=== PATIENT | male | born 1955 | race Caucasian/White ===

== ENCOUNTER 2017-12-03 15:11 | Inpatient (IN) | payer OTHER ==
[2017-12-03 18:00] LABS: ADD MAN DIFF? NO
[2017-12-03 18:03] LABS: BASOPHILS % 0.3 % (0.0-2.0); EOSINOPHILS # 0.4 10^3/ul (0.0-0.5); EOSINOPHILS % 3.6 % (0.0-7.0); HEMATOCRIT 38.9 % (42.0-52.0); HEMOGLOBIN 13.2 g/dl (14.0-18.0); LYMPHOCYTES # 1.1 10^3/ul (0.8-2.9); LYMPHOCYTES % 9.6 % (15.0-51.0); MEAN CORPUSCULAR HEMOGLOBIN 28.9 pg (29.0-33.0); MEAN CORPUSCULAR HGB CONC 33.9 g/dl (32.0-37.0); MEAN CORPUSCULAR VOLUME 85.3 fl (82.0-101.0); MEAN PLATELET VOLUME 10.9 fl (7.4-10.4); MONOCYTE # 0.8 10^3/ul (0.3-0.9); MONOCYTES % 6.8 % (0.0-11.0); NEUTROPHIL # 9.4 10^3/ul (1.6-7.5); NEUTROPHILS % 79.4 % (39.0-77.0); PLATELET COUNT 274 10^3/UL (140-415); RED BLOOD COUNT 4.56 10^6/ul (4.70-6.10); RED CELL DISTRIBUTION WIDTH 13.2 % (11.5-14.5)
[2017-12-03 18:03] LABS: WHITE BLOOD COUNT 11.8 10^3/ul (4.8-10.8)
[2017-12-03 18:23] LABS: ANION GAP 12 (8-16); BLOOD UREA NITROGEN 35 mg/dl (7-20); CALCIUM 8.4 mg/dl (8.4-10.2); CARBON DIOXIDE 30 mmol/L (21-31); CHLORIDE 97 mmol/L (97-110); CREATININE 1.73 mg/dl (0.61-1.24); POTASSIUM 3.7 mmol/L (3.5-5.1); SODIUM 135 mmol/L (135-144)
[2017-12-03 18:34] LABS: B-TYPE NATRIURETIC PEPTIDE 7660 PG/ML (0-125); GLUCOSE 403 mg/dl (70-220); INR 1.34; PROTIME 16.8 Sec (11.9-14.9); PT RATIO 1.3; TROPONIN-I 0.045 ng/ml (0.000-0.120)
[2017-12-03 18:35] LABS: PARTIAL THROMBOPLASTIN TIME 47.3 Sec (25.0-35.0)
[2017-12-03 18:37] LABS: D-DIMER 935.55 ng/ml (<460)
[2017-12-03] MEDS: FUROSEMIDE 40 MG INJ IV (19:37)
[2017-12-04] MEDS ORDERED: NITROGLYCERIN (SL) 0.4 MG TAB SL (06:30)
[2017-12-04] MEDS ORDERED: ALBUTEROL/IPRATROPIUM (NEB) 3 ML AMP HHN (06:30)
[2017-12-04] MEDS ORDERED: morphine 2 MG INJ IV (06:30)
[2017-12-04] MEDS ORDERED: ACETAMINOPHEN 325 MG TAB PO (06:30)
[2017-12-04] MEDS ORDERED: ONDANSETRON 4 MG INJ IV (06:30)
[2017-12-04] MEDS ORDERED: NACL 0.9% 3 ML SYG IV (06:30)
[2017-12-04] MEDS: FUROSEMIDE 40 MG TAB PO (07:03)
[2017-12-04] MEDS ORDERED: ASPIRIN 81 MG TAB PO (09:00)
[2017-12-04] MEDS ORDERED: BUPROPION (XL) 150 MG TAB PO (09:00)
[2017-12-04] MEDS ORDERED: FOLIC ACID 1 MG TAB PO (09:00)
[2017-12-04] MEDS: HEPARIN 5,000 UNIT/0.5 ML VIAL SC (09:00)
[2017-12-04] MEDS ORDERED: LOSARTAN 25 MG TAB PO (09:00)
== END 2017-12-04 09:45 | disposition left against medical advice (07) | DRG 291 ==
LOC: E/R 15:11 → TEL 19:07
DX: I13.0 Hypertensive heart and chronic kidney disease with heart failure and stage 1 through stage 4 chronic kidney disease, or unspecified chronic kidney disease (principal); I50.23 Acute on chronic systolic (congestive) heart failure; E11.22 Type 2 diabetes mellitus with diabetic chronic kidney disease; N18.9 Chronic kidney disease, unspecified; L97.529 Non-pressure chronic ulcer of other part of left foot with unspecified severity; E66.01 Morbid (severe) obesity due to excess calories; Z68.39 Body mass index [BMI] 39.0-39.9, adult; E11.40 Type 2 diabetes mellitus with diabetic neuropathy, unspecified; E11.65 Type 2 diabetes mellitus with hyperglycemia
CPT/HCPCS: 36415; 71045; 80048; 83880; 84484; 85025; 85378; 85610; 85730; 96374; 99285-25

== ENCOUNTER 2017-12-10 16:02 | Outpatient (CLI) | payer OTHER | END 2017-12-10 16:04 | disposition home or self-care (01) | LOC: DCC 16:02 | DX: I50.9 Heart failure, unspecified (principal); L97.529 Non-pressure chronic ulcer of other part of left foot with unspecified severity; N28.9 Disorder of kidney and ureter, unspecified; E66.9 Obesity, unspecified; G62.9 Polyneuropathy, unspecified; I10 Essential (primary) hypertension; I25.10 Atherosclerotic heart disease of native coronary artery without angina pectoris; I42.9 Cardiomyopathy, unspecified; E11.40 Type 2 diabetes mellitus with diabetic neuropathy, unspecified | CPT/HCPCS: G0463 ==

== ENCOUNTER 2017-12-24 14:16 | Outpatient (CLI) | payer OTHER | END 2017-12-24 16:35 | disposition home or self-care (01) | LOC: DCC 14:16 | DX: E11.621 Type 2 diabetes mellitus with foot ulcer (principal); N28.9 Disorder of kidney and ureter, unspecified; G62.9 Polyneuropathy, unspecified; I50.9 Heart failure, unspecified | CPT/HCPCS: G0463 ==

== ENCOUNTER 2018-09-27 17:07 | Inpatient (IN) | payer OTHER ==
[2018-09-27 18:33] LABS: ADD MAN DIFF? NO
[2018-09-27 18:40] LABS: WHITE BLOOD COUNT 10.1 10^3/ul (4.8-10.8)
[2018-09-27 18:40] LABS: BASOPHIL # 0.1 10^3/ul (0.0-0.1); BASOPHILS % 0.5 % (0.0-2.0); EOSINOPHILS # 0.2 10^3/ul (0.0-0.5); EOSINOPHILS % 1.9 % (0.0-7.0); HEMATOCRIT 40.8 % (42.0-52.0); HEMOGLOBIN 13.2 g/dl (14.0-18.0); LYMPHOCYTES # 0.9 10^3/ul (0.8-2.9); LYMPHOCYTES % 9.2 % (15.0-51.0); MEAN CORPUSCULAR HEMOGLOBIN 28.9 pg (29.0-33.0); MEAN CORPUSCULAR HGB CONC 32.4 g/dl (32.0-37.0); MEAN CORPUSCULAR VOLUME 89.5 fl (82.0-101.0); MEAN PLATELET VOLUME 11.1 fl (7.4-10.4); MONOCYTE # 0.7 10^3/ul (0.3-0.9); MONOCYTES % 6.5 % (0.0-11.0); NEUTROPHIL # 8.2 10^3/ul (1.6-7.5); NEUTROPHILS % 81.4 % (39.0-77.0); PLATELET COUNT 233 10^3/UL (140-415); RED BLOOD COUNT 4.56 10^6/ul (4.70-6.10); RED CELL DISTRIBUTION WIDTH 15.4 % (11.5-14.5)
[2018-09-27] MEDS: SODIUM CHLORIDE 0.9% 1L BAG IV* (18:54)
[2018-09-27] MEDS: PIPER-TAZO 3.375 GM IV (PMX) 100 ML IVPB (18:55)
[2018-09-27] MEDS: VANCOMYCIN 1 GM (PMX) 250 ML IVPB (18:56)
[2018-09-27 19:00] LABS: INR 1.17; PT RATIO 1.2
[2018-09-27] MEDS ORDERED: NACL 0.9% 3 ML SYG IV (19:00)
[2018-09-27] MEDS ORDERED: VANCOMYCIN IV PER PHARMACY XX (19:00)
[2018-09-27] MEDS ORDERED: ACETAMINOPHEN 325 MG TAB PO (19:00)
[2018-09-27] MEDS ORDERED: HYDROCODONE/APAP (5/325) TAB PO (19:00)
[2018-09-27] MEDS ORDERED: morphine 2 MG INJ IV (19:00)
[2018-09-27] MEDS ORDERED: ONDANSETRON 4 MG INJ IV (19:00)
[2018-09-27 19:01] LABS: PARTIAL THROMBOPLASTIN TIME 32.6 Sec (23.0-35.0)
[2018-09-27 19:08] LABS: ALANINE AMINOTRANSFERASE 20 IU/L (13-69); ALBUMIN 3.4 g/dl (3.3-4.9); ALBUMIN/GLOBULIN RATIO 0.75; ALKALINE PHOSPHATASE 436 IU/L (42-121); ANION GAP 11 (5-13); ASPARTATE AMINO TRANSFERASE 41 IU/L (15-46); BILIRUBIN,INDIRECT 0.2 mg/dl (0-1.1); BILIRUBIN,TOTAL 0.2 mg/dl (0.2-1.3); BLOOD UREA NITROGEN 46 mg/dl (7-20); CALCIUM 8.9 mg/dl (8.4-10.2); CARBON DIOXIDE 27 mmol/L (21-31); CHLORIDE 97 mmol/L (97-110); CREATININE 1.83 mg/dl (0.61-1.24); Estimated GFR 38 mL/min (>60); GLUCOSE 373 mg/dl (70-220); SODIUM 135 mmol/L (135-144); TOTAL PROTEIN 7.9 g/dl (6.1-8.1)
[2018-09-27 19:09] LABS: LACTIC ACID 1.5 mmol/L (0.5-2.0)
[2018-09-27 19:44] LABS: C-REACTIVE PROTEIN 5.8 mg/dl (0.0-0.9)
[2018-09-27 19:46] LABS: TROPONIN-I 0.074 ng/ml (0.000-0.120)
[2018-09-27 19:52] LABS: ERYTHROCYTE SEDIMENTATION RATE 61 mm/Hr (0-20)
[2018-09-27 19:56] LABS: ADD UMIC YES; UR ASCORBIC ACID 40 mg/dL (NEGATIVE); UR BILIRUBIN (Dip) NEGATIVE (NEGATIVE); UR BLOOD (Dip) NEGATIVE (NEGATIVE); UR CLARITY CLEAR (CLEAR); UR COLOR YELLOW (YELLOW); UR GLUCOSE (Dip) 3+ mg/dL (NEGATIVE); UR KETONES (Dip) NEGATIVE (NEGATIVE); UR LEUKOCYTE ESTERASE (Dip) NEGATIVE Leu/ul (NEGATIVE); UR NITRITE (Dip) NEGATIVE (NEGATIVE); UR RBC 2 /HPF (0-5); UR SPECIFIC GRAVITY (Dip) 1.013 (1.003-1.030); UR TOTAL PROTEIN (Dip) 3+ mg/dl (NEGATIVE); UR UROBILINOGEN (Dip) 1+ mg/dL (NEGATIVE); UR WBC 0 /HPF (0-5)
[2018-09-27] MEDS: VANCOMYCIN HCL 1.5 GM in SOD CHLORIDE 0.9% 250 ML IVPB (22:33)
[2018-09-28] MEDS ORDERED: INSULIN GLARGINE [LANtus] 3 ML PEN SC
[2018-09-28] MEDS: FUROSEMIDE 20 MG TAB PO
[2018-09-28] MEDS: ACCU-CHEK XX (02:00)
[2018-09-28] MEDS: INSULIN GLARGINE [LANTus] (100 UNITS/ML) SYG SC ×3 (02:20→20:51)
[2018-09-28] MEDS: FUROSEMIDE 40 MG INJ IV ×2 (02:26→20:52)
[2018-09-28] MEDS: INSULIN ASPART [NOVOLOG] 3 ML PEN SC ×9 (02:28→20:51)
[2018-09-28] MEDS: PIPER-TAZO 3.375 GM IV (PMX) 100 ML IVPB ×4 (03:29→20:54)
[2018-09-28 05:14] LABS: ADD MAN DIFF? NO
[2018-09-28 05:17] LABS: WHITE BLOOD COUNT 9.8 10^3/ul (4.8-10.8)
[2018-09-28 05:17] LABS: BASOPHIL # 0.1 10^3/ul (0.0-0.1); BASOPHILS % 0.7 % (0.0-2.0); EOSINOPHILS # 0.2 10^3/ul (0.0-0.5); EOSINOPHILS % 2.1 % (0.0-7.0); HEMATOCRIT 41.1 % (42.0-52.0); HEMOGLOBIN 13.2 g/dl (14.0-18.0); LYMPHOCYTES # 0.9 10^3/ul (0.8-2.9); MEAN CORPUSCULAR HEMOGLOBIN 28.8 pg (29.0-33.0); MEAN CORPUSCULAR HGB CONC 32.1 g/dl (32.0-37.0); MEAN CORPUSCULAR VOLUME 89.7 fl (82.0-101.0); MEAN PLATELET VOLUME 11.1 fl (7.4-10.4); MONOCYTE # 0.7 10^3/ul (0.3-0.9); MONOCYTES % 6.7 % (0.0-11.0); NEUTROPHIL # 7.9 10^3/ul (1.6-7.5); NEUTROPHILS % 80.9 % (39.0-77.0); PLATELET COUNT 219 10^3/UL (140-415); RED BLOOD COUNT 4.58 10^6/ul (4.70-6.10); RED CELL DISTRIBUTION WIDTH 15.3 % (11.5-14.5)
[2018-09-28 05:34] LABS: HEMOGLOBIN A1C 10.5 % (0-5.9)
[2018-09-28 06:09] LABS: ALANINE AMINOTRANSFERASE 19 IU/L (13-69); ALKALINE PHOSPHATASE 390 IU/L (42-121); ANION GAP 10 (5-13); ASPARTATE AMINO TRANSFERASE 35 IU/L (15-46); BILIRUBIN,INDIRECT 0.3 mg/dl (0-1.1); BILIRUBIN,TOTAL 0.3 mg/dl (0.2-1.3); BLOOD UREA NITROGEN 41 mg/dl (7-20); CALCIUM 8.8 mg/dl (8.4-10.2); CARBON DIOXIDE 27 mmol/L (21-31); CHLORIDE 100 mmol/L (97-110); CREATININE 1.69 mg/dl (0.61-1.24); Estimated GFR 41 mL/min (>60); GLUCOSE 302 mg/dl (70-220); POTASSIUM 3.8 mmol/L (3.5-5.1); SODIUM 137 mmol/L (135-144)
[2018-09-28 06:10] LABS: ALBUMIN 3.4 g/dl (3.3-4.9); ALBUMIN/GLOBULIN RATIO 0.73; CHOL/HDL RATIO 4.6 RATIO; CHOLESTEROL 120 mg/dl (100-200); HDL CHOLESTEROL 26 mg/dl (30-78); LDL CHOLESTEROL,CALCULATED 71 mg/dl; TRIGLYCERIDES 114 mg/dl (0-149)
[2018-09-28] MEDS: METOPROLOL (XL) 50 MG TAB PO ×2 (08:19→20:41)
[2018-09-28] MEDS: ASPIRIN (EC) 81 MG TAB PO (08:19)
[2018-09-28] MEDS: FUROSEMIDE 20 MG INJ IV (08:20)
[2018-09-28] MEDS: HEPARIN 5,000 UNIT/1 ML VIAL SC ×2 (08:22→20:42)
[2018-09-28] MEDS ORDERED: FUROSEMIDE 40 MG TAB PO (09:00)
[2018-09-28] MEDS ORDERED: DEXTROSE 50% 50 ML SYRINGE IV ×2 (12:30)
[2018-09-28] MEDS ORDERED: GLUCAGON 1 MG INJ IM (12:30)
[2018-09-28] MEDS ORDERED: GLUCOSE GEL 15 GRAM TUBE PO ×2 (12:30)
[2018-09-28] MEDS ORDERED: GLUCOSE GEL 15 GRAM TUBE BUCCAL (12:30)
[2018-09-28] MEDS: HYDROCORTISONE 1% 28 GM CR TOP (20:53)
[2018-09-28] MEDS: VANCOMYCIN HCL 1.5 GM in SOD CHLORIDE 0.9% 250 ML IVPB (23:14)
[2018-09-29] MEDS: ACCU-CHEK XX (02:33)
[2018-09-29] MEDS: PIPER-TAZO 3.375 GM IV (PMX) 100 ML IVPB ×4 (03:51→20:54)
[2018-09-29 06:01] LABS: BLOOD UREA NITROGEN 41 mg/dl (7-20)
[2018-09-29] MEDS: INSULIN ASPART [NOVOLOG] 3 ML PEN SC ×7 (08:04→20:45)
[2018-09-29] MEDS: BUPROPION (XL) 150 MG TAB PO (08:08)
[2018-09-29] MEDS: INSULIN GLARGINE [LANTus] (100 UNITS/ML) SYG SC ×2 (08:08→20:43)
[2018-09-29] MEDS: HEPARIN 5,000 UNIT/1 ML VIAL SC ×2 (08:09→20:49)
[2018-09-29] MEDS: METOPROLOL (XL) 50 MG TAB PO ×2 (08:10→20:40)
[2018-09-29] MEDS: FUROSEMIDE 20 MG INJ IV (08:10)
[2018-09-29] MEDS: ASPIRIN (EC) 81 MG TAB PO (08:10)
[2018-09-29] MEDS: HYDROCORTISONE 1% 28 GM CR TOP ×2 (09:22→20:57)
[2018-09-29] MEDS: COLLAGENASE 5 GM (UD JAR) TOP ×2 (11:06→23:06)
[2018-09-29] MEDS: FUROSEMIDE 40 MG INJ IV (20:50)
[2018-09-29] MEDS: VANCOMYCIN HCL 1.5 GM in SOD CHLORIDE 0.9% 250 ML IVPB ×2 (23:00→23:43)
[2018-09-30] MEDS: ACCU-CHEK XX (02:00)
[2018-09-30] MEDS: PIPER-TAZO 3.375 GM IV (PMX) 100 ML IVPB ×2 (04:04→09:16)
[2018-09-30] MEDS: INSULIN ASPART [NOVOLOG] 3 ML PEN SC ×7 (08:00→20:29)
[2018-09-30] MEDS: HEPARIN 5,000 UNIT/1 ML VIAL SC ×2 (09:00→20:31)
[2018-09-30] MEDS: METOPROLOL (XL) 50 MG TAB PO ×2 (09:00→20:31)
[2018-09-30] MEDS: FUROSEMIDE 20 MG INJ IV (09:07)
[2018-09-30] MEDS: ASPIRIN (EC) 81 MG TAB PO (09:07)
[2018-09-30] MEDS: HYDROCORTISONE 1% 28 GM CR TOP ×2 (09:08→20:34)
[2018-09-30] MEDS: COLLAGENASE 5 GM (UD JAR) TOP ×2 (09:08→20:30)
[2018-09-30] MEDS: INSULIN GLARGINE [LANTus] (100 UNITS/ML) SYG SC ×2 (09:09→20:33)
[2018-09-30] MEDS: FUROSEMIDE 40 MG INJ IV (20:30)
[2018-10-01] MEDS: ACCU-CHEK XX (01:04)
[2018-10-01] MEDS: INSULIN ASPART [NOVOLOG] 3 ML PEN SC ×4 (07:35→12:38)
[2018-10-01] MEDS: HEPARIN 5,000 UNIT/1 ML VIAL SC (09:00)
[2018-10-01] MEDS: INSULIN GLARGINE [LANTus] (100 UNITS/ML) SYG SC ×2 (09:00→10:13)
[2018-10-01] MEDS: METOPROLOL (XL) 50 MG TAB PO (09:00)
[2018-10-01] MEDS: FUROSEMIDE 20 MG INJ IV (10:05)
[2018-10-01] MEDS: COLLAGENASE 5 GM (UD JAR) TOP (10:06)
[2018-10-01] MEDS: HYDROCORTISONE 1% 28 GM CR TOP (10:07)
[2018-10-01] MEDS: ASPIRIN (EC) 81 MG TAB PO (10:07)
== END 2018-10-01 16:28 | disposition home health service (06) | DRG 637 ==
LOC: E/R 17:07 → PP2 19:17
DX: E11.621 Type 2 diabetes mellitus with foot ulcer (principal); I50.23 Acute on chronic systolic (congestive) heart failure; I13.0 Hypertensive heart and chronic kidney disease with heart failure and stage 1 through stage 4 chronic kidney disease, or unspecified chronic kidney disease; L03.116 Cellulitis of left lower limb; L97.522 Non-pressure chronic ulcer of other part of left foot with fat layer exposed; E11.65 Type 2 diabetes mellitus with hyperglycemia; E11.22 Type 2 diabetes mellitus with diabetic chronic kidney disease; N18.9 Chronic kidney disease, unspecified; E66.01 Morbid (severe) obesity due to excess calories; Z68.38 Body mass index [BMI] 38.0-38.9, adult; E11.40 Type 2 diabetes mellitus with diabetic neuropathy, unspecified; L85.1 Acquired keratosis [keratoderma] palmaris et plantaris; I87.8 Other specified disorders of veins; L40.9 Psoriasis, unspecified; G47.33 Obstructive sleep apnea (adult) (pediatric); Z79.4 Long term (current) use of insulin; Z79.82 Long term (current) use of aspirin
CPT/HCPCS: 36415; 71045; 73590; 80053; 80061; 81001; 82565; 82962; 83036; 83605; 83735; 84443; 84484; 84520; 85025; 85610; 85651; 85730; 86140; 87040-91; 87086; 93005; 94660; 96365; 96375; 99285-25

== ENCOUNTER 2018-11-01 15:25 | Inpatient (IN) | payer OTHER ==
[2018-11-01 18:28] LABS: ADD MAN DIFF? NO
[2018-11-01 18:30] LABS: WHITE BLOOD COUNT 12.9 10^3/ul (4.8-10.8)
[2018-11-01 18:30] LABS: BASOPHIL # 0.1 10^3/ul (0.0-0.1); BASOPHILS % 0.6 % (0.0-2.0); EOSINOPHILS # 0.2 10^3/ul (0.0-0.5); EOSINOPHILS % 1.2 % (0.0-7.0); HEMATOCRIT 42.4 % (42.0-52.0); HEMOGLOBIN 13.9 g/dl (14.0-18.0); LYMPHOCYTES # 1.1 10^3/ul (0.8-2.9); LYMPHOCYTES % 8.8 % (15.0-51.0); MEAN CORPUSCULAR HEMOGLOBIN 29.3 pg (29.0-33.0); MEAN CORPUSCULAR HGB CONC 32.8 g/dl (32.0-37.0); MEAN CORPUSCULAR VOLUME 89.5 fl (82.0-101.0); MEAN PLATELET VOLUME 10.5 fl (7.4-10.4); MONOCYTE # 0.9 10^3/ul (0.3-0.9); MONOCYTES % 6.6 % (0.0-11.0); NEUTROPHIL # 10.6 10^3/ul (1.6-7.5); PLATELET COUNT 247 10^3/UL (140-415); RED BLOOD COUNT 4.74 10^6/ul (4.70-6.10); RED CELL DISTRIBUTION WIDTH 16.2 % (11.5-14.5)
[2018-11-01 18:36] LABS: ALANINE AMINOTRANSFERASE 21 IU/L (13-69); ALBUMIN 3.5 g/dl (3.3-4.9); ALBUMIN/GLOBULIN RATIO 0.68; ALKALINE PHOSPHATASE 430 IU/L (42-121); ANION GAP 9 (5-13); ASPARTATE AMINO TRANSFERASE 47 IU/L (15-46); BILIRUBIN,INDIRECT 0.6 mg/dl (0-1.1); BILIRUBIN,TOTAL 0.6 mg/dl (0.2-1.3); BLOOD UREA NITROGEN 49 mg/dl (7-20); CALCIUM 9.3 mg/dl (8.4-10.2); CARBON DIOXIDE 25 mmol/L (21-31); CHLORIDE 105 mmol/L (97-110); CREATININE 1.86 mg/dl (0.61-1.24); Estimated GFR 37 mL/min (>60); GLUCOSE 135 mg/dl (70-220); POTASSIUM 4.4 mmol/L (3.5-5.1); SODIUM 139 mmol/L (135-144); TOTAL PROTEIN 8.6 g/dl (6.1-8.1)
[2018-11-01] MEDS: PIPER-TAZO 3.375 GM IV (PMX) 100 ML IVPB (18:45)
[2018-11-01] MEDS: VANCOMYCIN 1 GM (PMX) 250 ML IVPB (19:28)
[2018-11-01] MEDS ORDERED: ONDANSETRON 4 MG INJ IV ×2 (20:00→20:30)
[2018-11-01] MEDS ORDERED: ACETAMINOPHEN 325 MG TAB PO ×2 (20:00→20:30)
[2018-11-01 20:25] LABS: B-TYPE NATRIURETIC PEPTIDE 16400 PG/ML (0-125)
[2018-11-01] MEDS ORDERED: BUPROPION (XL) 150 MG TAB PO (20:30)
[2018-11-01] MEDS ORDERED: NACL 0.9% 3 ML SYG IV (20:30)
[2018-11-01] MEDS ORDERED: ALBUTEROL/IPRATROPIUM (NEB) 3 ML AMP HHN (20:30)
[2018-11-01] MEDS: FUROSEMIDE 40 MG INJ IV (20:47)
[2018-11-01] MEDS: HEPARIN 5,000 UNIT/1 ML VIAL SC (21:00)
[2018-11-01] MEDS ORDERED: GLUCAGON 1 MG INJ IM (21:30)
[2018-11-01] MEDS ORDERED: GLUCOSE GEL 15 GRAM TUBE BUCCAL (21:30)
[2018-11-01] MEDS ORDERED: GLUCOSE GEL 15 GRAM TUBE PO ×2 (21:30)
[2018-11-01] MEDS ORDERED: DEXTROSE 50% 50 ML SYRINGE IV ×2 (21:30)
[2018-11-01 21:47] LABS: TROPONIN-I 0.031 ng/ml (0.000-0.120)
[2018-11-01] MEDS: METOPROLOL (XL) 50 MG TAB PO (23:18)
[2018-11-01] MEDS: INSULIN GLARGINE [LANTus] (100 UNITS/ML) SYG SC (23:53)
[2018-11-02] MEDS ORDERED: PENDING SANTYL ORDER FOR WOUND CARE XX (01:00)
[2018-11-02] MEDS: HYDROCODONE/APAP (5/325) TAB PO (01:07)
[2018-11-02] MEDS: ACCU-CHEK XX (02:00)
[2018-11-02] MEDS: GUAIFENESIN/CODEINE 5ML CUP PO (06:19)
[2018-11-02 06:33] LABS: ADD MAN DIFF? NO
[2018-11-02 06:41] LABS: BASOPHIL # 0.1 10^3/ul (0.0-0.1); BASOPHILS % 0.6 % (0.0-2.0); EOSINOPHILS # 0.2 10^3/ul (0.0-0.5); EOSINOPHILS % 1.5 % (0.0-7.0); HEMATOCRIT 37.5 % (42.0-52.0); HEMOGLOBIN 12.5 g/dl (14.0-18.0); LYMPHOCYTES # 0.9 10^3/ul (0.8-2.9); LYMPHOCYTES % 7.6 % (15.0-51.0); MEAN CORPUSCULAR HEMOGLOBIN 29.4 pg (29.0-33.0); MEAN CORPUSCULAR HGB CONC 33.3 g/dl (32.0-37.0); MEAN CORPUSCULAR VOLUME 88.2 fl (82.0-101.0); MEAN PLATELET VOLUME 10.8 fl (7.4-10.4); MONOCYTE # 0.8 10^3/ul (0.3-0.9); MONOCYTES % 6.6 % (0.0-11.0); NEUTROPHILS % 83.3 % (39.0-77.0); PLATELET COUNT 216 10^3/UL (140-415); RED BLOOD COUNT 4.25 10^6/ul (4.70-6.10); RED CELL DISTRIBUTION WIDTH 16.1 % (11.5-14.5)
[2018-11-02] MEDS ORDERED: VANCOMYCIN IV PER PHARMACY XX (07:00)
[2018-11-02 07:23] LABS: ALANINE AMINOTRANSFERASE 22 IU/L (13-69); ALBUMIN 2.8 g/dl (3.3-4.9); ALBUMIN/GLOBULIN RATIO 0.68; ALKALINE PHOSPHATASE 338 IU/L (42-121); ANION GAP 11 (5-13); ASPARTATE AMINO TRANSFERASE 38 IU/L (15-46); BILIRUBIN,INDIRECT 0.4 mg/dl (0-1.1); BILIRUBIN,TOTAL 0.4 mg/dl (0.2-1.3); BLOOD UREA NITROGEN 46 mg/dl (7-20); CALCIUM 8.6 mg/dl (8.4-10.2); CARBON DIOXIDE 22 mmol/L (21-31); CHLORIDE 106 mmol/L (97-110); CREATININE 1.76 mg/dl (0.61-1.24); Estimated GFR 39 mL/min (>60); GLUCOSE 175 mg/dl (70-220); MAGNESIUM 1.9 mg/dl (1.7-2.5); POTASSIUM 3.7 mmol/L (3.5-5.1); SODIUM 139 mmol/L (135-144); TOTAL PROTEIN 6.9 g/dl (6.1-8.1)
[2018-11-02] MEDS: PIPER-TAZO 3.375 GM IV (PMX) 100 ML IVPB ×4 (08:05→23:19)
[2018-11-02] MEDS: INSULIN ASPART [NOVOLOG] 3 ML PEN SC ×4 (08:08→20:32)
[2018-11-02] MEDS: HEPARIN 5,000 UNIT/1 ML VIAL SC ×2 (09:00→20:32)
[2018-11-02] MEDS: BUPROPION (XL) 150 MG TAB PO (09:12)
[2018-11-02] MEDS: ASPIRIN (EC) 81 MG TAB PO (09:12)
[2018-11-02] MEDS: FUROSEMIDE 40 MG TAB PO (09:12)
[2018-11-02] MEDS: METOPROLOL (XL) 50 MG TAB PO ×2 (09:12→20:30)
[2018-11-02] MEDS: VANCOMYCIN HCL 1.25 GM in SOD CHLORIDE 0.9% 250 ML IVPB (09:13)
[2018-11-02] MEDS: INSULIN GLARGINE [LANTus] (100 UNITS/ML) SYG SC ×2 (09:13→20:32)
[2018-11-02] MEDS ORDERED: ALBUTEROL/IPRATROPIUM (NEB) 3 ML AMP HHN (10:30)
[2018-11-02 14:07] LABS: ADD UMIC YES; UR ASCORBIC ACID 20 mg/dL (NEGATIVE); UR BILIRUBIN (Dip) NEGATIVE (NEGATIVE); UR BLOOD (Dip) NEGATIVE (NEGATIVE); UR CLARITY SLIGHTLY CLOUDY (CLEAR); UR COLOR YELLOW (YELLOW); UR GLUCOSE (Dip) 1+ mg/dL (NEGATIVE); UR KETONES (Dip) NEGATIVE (NEGATIVE); UR LEUKOCYTE ESTERASE (Dip) NEGATIVE Leu/ul (NEGATIVE); UR NITRITE (Dip) NEGATIVE (NEGATIVE); UR RBC 0 /HPF (0-5); UR SPECIFIC GRAVITY (Dip) 1.014 (1.003-1.030); UR TOTAL PROTEIN (Dip) 2+ mg/dl (NEGATIVE); UR UROBILINOGEN (Dip) 1+ mg/dL (NEGATIVE); UR WBC 0 /HPF (0-5)
[2018-11-02 14:19] LABS: CREATININE,URINE RANDOM 63.48 mg/dl (20-370); PROTEIN/CREAT RATIO 1.96 RATIO
[2018-11-02] MEDS: ALBUTEROL/IPRATROPIUM (NEB) 3 ML AMP HHN ×2 (14:36→20:00)
[2018-11-02] MEDS: FUROSEMIDE 40 MG INJ IV (17:15)
[2018-11-02 18:37] LABS: CREATINE KINASE 129 IU/L (23-200)
[2018-11-02 18:51] LABS: CK INDEX 4.5; TROPONIN-I 0.024 ng/ml (0.000-0.120)
[2018-11-02 18:53] LABS: CK-MB 5.82 ng/ml (0.0-2.4)
[2018-11-02] MEDS: MAGNESIUM HYDROXIDE 30ML CUP PO (23:19)
[2018-11-03 01:16] LABS: CREATINE KINASE 120 IU/L (23-200)
[2018-11-03 01:27] LABS: CK INDEX 4.3; TROPONIN-I 0.025 ng/ml (0.000-0.120)
[2018-11-03 01:28] LABS: CK-MB 5.12 ng/ml (0.0-2.4)
[2018-11-03] MEDS: ACCU-CHEK XX (02:00)
[2018-11-03] MEDS: PIPER-TAZO 3.375 GM IV (PMX) 100 ML IVPB (05:53)
[2018-11-03] MEDS: FUROSEMIDE 40 MG INJ IV ×2 (05:53→17:41)
[2018-11-03 06:37] LABS: ADD MAN DIFF? NO
[2018-11-03 06:53] LABS: BASOPHIL # 0.1 10^3/ul (0.0-0.1); BASOPHILS % 0.6 % (0.0-2.0); EOSINOPHILS # 0.2 10^3/ul (0.0-0.5); EOSINOPHILS % 1.3 % (0.0-7.0); HEMOGLOBIN 13.3 g/dl (14.0-18.0); LYMPHOCYTES % 6.9 % (15.0-51.0); MEAN CORPUSCULAR HEMOGLOBIN 29.2 pg (29.0-33.0); MEAN CORPUSCULAR HGB CONC 33.3 g/dl (32.0-37.0); MEAN CORPUSCULAR VOLUME 87.9 fl (82.0-101.0); MEAN PLATELET VOLUME 10.7 fl (7.4-10.4); MONOCYTES % 7.1 % (0.0-11.0); NEUTROPHIL # 11.8 10^3/ul (1.6-7.5); NEUTROPHILS % 83.6 % (39.0-77.0); PLATELET COUNT 237 10^3/UL (140-415); RED BLOOD COUNT 4.55 10^6/ul (4.70-6.10); RED CELL DISTRIBUTION WIDTH 16.1 % (11.5-14.5)
[2018-11-03 06:53] LABS: WHITE BLOOD COUNT 14.1 10^3/ul (4.8-10.8)
[2018-11-03 07:22] LABS: CREATINE KINASE 154 IU/L (23-200)
[2018-11-03 07:26] LABS: CHOLESTEROL 85 mg/dl (100-200)
[2018-11-03 07:26] LABS: CHOL/HDL RATIO 4.7 RATIO; CK INDEX 3.3; HDL CHOLESTEROL 18 mg/dl (30-78); LDL CHOLESTEROL,CALCULATED 48 mg/dl; TRIGLYCERIDES 96 mg/dl (0-149); TROPONIN-I 0.028 ng/ml (0.000-0.120)
[2018-11-03 07:27] LABS: CK-MB 5.07 ng/ml (0.0-2.4)
[2018-11-03 07:28] LABS: ANION GAP 13 (5-13); BLOOD UREA NITROGEN 47 mg/dl (7-20); CALCIUM 8.6 mg/dl (8.4-10.2); CARBON DIOXIDE 21 mmol/L (21-31); CHLORIDE 104 mmol/L (97-110); CREATININE 1.88 mg/dl (0.61-1.24); Estimated GFR 36 mL/min (>60); GLUCOSE 299 mg/dl (70-220); POTASSIUM 4.2 mmol/L (3.5-5.1); SODIUM 138 mmol/L (135-144)
[2018-11-03] MEDS: ALBUTEROL/IPRATROPIUM (NEB) 3 ML AMP HHN ×3 (08:00→19:50)
[2018-11-03] MEDS: BUPROPION (XL) 150 MG TAB PO (08:14)
[2018-11-03] MEDS: VANCOMYCIN HCL 1.25 GM in SOD CHLORIDE 0.9% 250 ML IVPB (08:14)
[2018-11-03] MEDS: ASPIRIN (EC) 81 MG TAB PO (08:15)
[2018-11-03] MEDS: METOPROLOL (XL) 50 MG TAB PO ×2 (08:15→09:00)
[2018-11-03] MEDS: INSULIN GLARGINE [LANTus] (100 UNITS/ML) SYG SC ×2 (08:17→20:39)
[2018-11-03] MEDS: INSULIN ASPART [NOVOLOG] 3 ML PEN SC ×4 (08:17→20:38)
[2018-11-03] MEDS: HEPARIN 5,000 UNIT/1 ML VIAL SC ×3 (08:18→20:37)
[2018-11-03] MEDS: SENNA TAB PO ×2 (08:20→20:37)
[2018-11-03] MEDS: METOPROLOL (XL) 25 MG TAB PO (10:59)
[2018-11-03] MEDS: ERTAPENEM SODIUM 1 GM in SOD CHLORIDE 0.9% 100 ML IVPB (13:16)
[2018-11-04] MEDS: ACCU-CHEK XX (01:55)
[2018-11-04] MEDS: FUROSEMIDE 40 MG INJ IV ×2 (05:28→18:01)
[2018-11-04 06:10] LABS: ADD MAN DIFF? NO
[2018-11-04 06:29] LABS: WHITE BLOOD COUNT 14.2 10^3/ul (4.8-10.8)
[2018-11-04 06:29] LABS: BASOPHIL # 0.1 10^3/ul (0.0-0.1); BASOPHILS % 0.6 % (0.0-2.0); EOSINOPHILS # 0.2 10^3/ul (0.0-0.5); EOSINOPHILS % 1.5 % (0.0-7.0); HEMOGLOBIN 12.6 g/dl (14.0-18.0); LYMPHOCYTES # 1.1 10^3/ul (0.8-2.9); LYMPHOCYTES % 7.8 % (15.0-51.0); MEAN CORPUSCULAR HEMOGLOBIN 29.3 pg (29.0-33.0); MEAN CORPUSCULAR HGB CONC 33.2 g/dl (32.0-37.0); MEAN CORPUSCULAR VOLUME 88.4 fl (82.0-101.0); MEAN PLATELET VOLUME 10.8 fl (7.4-10.4); MONOCYTE # 1.1 10^3/ul (0.3-0.9); MONOCYTES % 7.7 % (0.0-11.0); NEUTROPHIL # 11.6 10^3/ul (1.6-7.5); PLATELET COUNT 236 10^3/UL (140-415); RED CELL DISTRIBUTION WIDTH 16.2 % (11.5-14.5)
[2018-11-04 06:59] LABS: ANION GAP 10 (5-13); BLOOD UREA NITROGEN 47 mg/dl (7-20); CALCIUM 8.7 mg/dl (8.4-10.2); CARBON DIOXIDE 24 mmol/L (21-31); CHLORIDE 105 mmol/L (97-110); CREATININE 1.76 mg/dl (0.61-1.24); Estimated GFR 39 mL/min (>60); GLUCOSE 131 mg/dl (70-220); MAGNESIUM 2.1 mg/dl (1.7-2.5); POTASSIUM 3.6 mmol/L (3.5-5.1); SODIUM 139 mmol/L (135-144)
[2018-11-04] MEDS: ALBUTEROL/IPRATROPIUM (NEB) 3 ML AMP HHN ×3 (08:00→20:55)
[2018-11-04] MEDS: METOLAZONE 5 MG TAB PO ×2 (09:00→20:58)
[2018-11-04] MEDS: HEPARIN 5,000 UNIT/1 ML VIAL SC ×3 (09:00→20:50)
[2018-11-04] MEDS: INSULIN ASPART [NOVOLOG] 3 ML PEN SC ×4 (09:15→20:55)
[2018-11-04] MEDS: INSULIN GLARGINE [LANTus] (100 UNITS/ML) SYG SC ×2 (09:16→20:56)
[2018-11-04] MEDS: BUPROPION (XL) 150 MG TAB PO (09:17)
[2018-11-04] MEDS: VANCOMYCIN HCL 1.25 GM in SOD CHLORIDE 0.9% 250 ML IVPB (09:17)
[2018-11-04] MEDS: SENNA TAB PO ×2 (09:17→20:55)
[2018-11-04] MEDS: HYDROCODONE/APAP (5/325) TAB PO ×2 (09:17→21:34)
[2018-11-04] MEDS: ASPIRIN (EC) 81 MG TAB PO (09:18)
[2018-11-04] MEDS: AMLODIPINE 5 MG TAB PO (09:18)
[2018-11-04] MEDS: METOPROLOL (XL) 25 MG TAB PO (09:18)
[2018-11-04] MEDS: POTASSIUM CHLORIDE (SR) 10 MEQ TAB PO (10:03)
[2018-11-04] MEDS: CIPROFLOXACIN 500 MG TAB PO (18:01)
[2018-11-05] MEDS: ACCU-CHEK XX (02:00)
[2018-11-05] MEDS: FUROSEMIDE 40 MG INJ IV (05:50)
[2018-11-05] MEDS: CIPROFLOXACIN 500 MG TAB PO ×2 (05:50→17:43)
[2018-11-05] MEDS: ALBUTEROL/IPRATROPIUM (NEB) 3 ML AMP HHN ×3 (07:54→20:00)
[2018-11-05] MEDS: INSULIN ASPART [NOVOLOG] 3 ML PEN SC ×4 (08:00→22:01)
[2018-11-05] MEDS: AMLODIPINE 5 MG TAB PO (08:25)
[2018-11-05] MEDS: HEPARIN 5,000 UNIT/1 ML VIAL SC ×2 (08:25→20:21)
[2018-11-05] MEDS: METOLAZONE 5 MG TAB PO ×3 (08:25→17:43)
[2018-11-05] MEDS: INSULIN GLARGINE [LANTus] (100 UNITS/ML) SYG SC ×2 (08:27→22:02)
[2018-11-05] MEDS: SENNA TAB PO ×2 (08:28→20:23)
[2018-11-05] MEDS: BUPROPION (XL) 150 MG TAB PO (08:28)
[2018-11-05] MEDS: ASPIRIN (EC) 81 MG TAB PO (08:28)
[2018-11-05] MEDS: METOPROLOL (XL) 25 MG TAB PO (08:29)
[2018-11-05 08:40] LABS: ADD MAN DIFF? NO
[2018-11-05 08:48] LABS: BASOPHIL # 0.1 10^3/ul (0.0-0.1); BASOPHILS % 0.7 % (0.0-2.0); EOSINOPHILS # 0.2 10^3/ul (0.0-0.5); EOSINOPHILS % 1.6 % (0.0-7.0); HEMATOCRIT 40.5 % (42.0-52.0); HEMOGLOBIN 13.5 g/dl (14.0-18.0); LYMPHOCYTES # 1.3 10^3/ul (0.8-2.9); LYMPHOCYTES % 9.8 % (15.0-51.0); MEAN CORPUSCULAR HEMOGLOBIN 30.1 pg (29.0-33.0); MEAN CORPUSCULAR HGB CONC 33.3 g/dl (32.0-37.0); MEAN CORPUSCULAR VOLUME 90.4 fl (82.0-101.0); MEAN PLATELET VOLUME 10.5 fl (7.4-10.4); MONOCYTE # 0.9 10^3/ul (0.3-0.9); MONOCYTES % 6.8 % (0.0-11.0); NEUTROPHIL # 10.8 10^3/ul (1.6-7.5); NEUTROPHILS % 80.7 % (39.0-77.0); PLATELET COUNT 252 10^3/UL (140-415); RED BLOOD COUNT 4.48 10^6/ul (4.70-6.10); RED CELL DISTRIBUTION WIDTH 16.7 % (11.5-14.5)
[2018-11-05 08:48] LABS: WHITE BLOOD COUNT 13.4 10^3/ul (4.8-10.8)
[2018-11-05 09:25] LABS: VANCOMYCIN,TROUGH 16.9 ug/ml (10.0-20.0)
[2018-11-05 09:26] LABS: ANION GAP 9 (5-13); BLOOD UREA NITROGEN 54 mg/dl (7-20); CALCIUM 9.1 mg/dl (8.4-10.2); CARBON DIOXIDE 25 mmol/L (21-31); CHLORIDE 105 mmol/L (97-110); CREATININE 1.77 mg/dl (0.61-1.24); Estimated GFR 39 mL/min (>60); GLUCOSE 101 mg/dl (70-220); MAGNESIUM 2.1 mg/dl (1.7-2.5); PHOSPHORUS 5.3 mg/dl (2.5-4.9); POTASSIUM 4.4 mmol/L (3.5-5.1); SODIUM 139 mmol/L (135-144)
[2018-11-05] MEDS: BUMETANIDE 1 MG INJ IV ×2 (10:18→17:43)
[2018-11-05] MEDS: VANCOMYCIN HCL 1.25 GM in SOD CHLORIDE 0.9% 250 ML IVPB (10:19)
[2018-11-05] MEDS: POTASSIUM CHLORIDE (SR) 10 MEQ TAB PO (10:19)
[2018-11-05] MEDS: RIFAMPIN 300 MG CAP PO (12:28)
[2018-11-06] MEDS: ACCU-CHEK XX (02:00)
[2018-11-06] MEDS: HYDROCODONE/APAP (5/325) TAB PO ×2 (02:14→03:59)
[2018-11-06] MEDS: BUMETANIDE 1 MG INJ IV ×2 (06:05→17:29)
[2018-11-06] MEDS: CIPROFLOXACIN 500 MG TAB PO ×2 (06:07→17:30)
[2018-11-06] MEDS: METOLAZONE 5 MG TAB PO ×2 (06:11→17:31)
[2018-11-06 06:59] LABS: ADD MAN DIFF? NO
[2018-11-06 07:12] LABS: WHITE BLOOD COUNT 12.3 10^3/ul (4.8-10.8)
[2018-11-06 07:12] LABS: BASOPHIL # 0.1 10^3/ul (0.0-0.1); BASOPHILS % 0.9 % (0.0-2.0); EOSINOPHILS # 0.3 10^3/ul (0.0-0.5); HEMATOCRIT 41.4 % (42.0-52.0); HEMOGLOBIN 13.6 g/dl (14.0-18.0); LYMPHOCYTES # 1.4 10^3/ul (0.8-2.9); LYMPHOCYTES % 11.4 % (15.0-51.0); MEAN CORPUSCULAR HEMOGLOBIN 29.2 pg (29.0-33.0); MEAN CORPUSCULAR HGB CONC 32.9 g/dl (32.0-37.0); MEAN PLATELET VOLUME 10.7 fl (7.4-10.4); MONOCYTE # 0.9 10^3/ul (0.3-0.9); MONOCYTES % 7.3 % (0.0-11.0); NEUTROPHIL # 9.6 10^3/ul (1.6-7.5); NEUTROPHILS % 78.1 % (39.0-77.0); PLATELET COUNT 264 10^3/UL (140-415); RED BLOOD COUNT 4.65 10^6/ul (4.70-6.10); RED CELL DISTRIBUTION WIDTH 16.6 % (11.5-14.5)
[2018-11-06 07:33] LABS: ANION GAP 10 (5-13); BLOOD UREA NITROGEN 56 mg/dl (7-20); CALCIUM 9.2 mg/dl (8.4-10.2); CARBON DIOXIDE 27 mmol/L (21-31); CHLORIDE 105 mmol/L (97-110); CREATININE 1.89 mg/dl (0.61-1.24); Estimated GFR 36 mL/min (>60); GLUCOSE 92 mg/dl (70-220); MAGNESIUM 2.2 mg/dl (1.7-2.5); PHOSPHORUS 5.2 mg/dl (2.5-4.9); POTASSIUM 4.3 mmol/L (3.5-5.1); SODIUM 142 mmol/L (135-144)
[2018-11-06] MEDS: ALBUTEROL/IPRATROPIUM (NEB) 3 ML AMP HHN ×3 (08:00→19:42)
[2018-11-06] MEDS: INSULIN ASPART [NOVOLOG] 3 ML PEN SC ×4 (08:00→20:42)
[2018-11-06] MEDS: AMLODIPINE 5 MG TAB PO (08:05)
[2018-11-06] MEDS: HEPARIN 5,000 UNIT/1 ML VIAL SC ×2 (08:06→20:42)
[2018-11-06] MEDS: INSULIN GLARGINE [LANTus] (100 UNITS/ML) SYG SC ×2 (08:34→20:43)
[2018-11-06] MEDS: RIFAMPIN 300 MG CAP PO (08:35)
[2018-11-06] MEDS: SENNA TAB PO ×2 (08:35→20:42)
[2018-11-06] MEDS: BUPROPION (XL) 150 MG TAB PO (08:35)
[2018-11-06] MEDS: ASPIRIN (EC) 81 MG TAB PO (08:36)
[2018-11-06] MEDS: METOPROLOL (XL) 25 MG TAB PO (08:37)
[2018-11-06] MEDS: VANCOMYCIN 1 GM 250 ML IVPB (09:56)
[2018-11-07] MEDS: ACCU-CHEK XX (02:00)
[2018-11-07] MEDS: CIPROFLOXACIN 500 MG TAB PO ×2 (05:11→17:18)
[2018-11-07] MEDS: BUMETANIDE 1 MG INJ IV (05:11)
[2018-11-07] MEDS: METOLAZONE 5 MG TAB PO ×2 (05:12→17:18)
[2018-11-07 06:07] LABS: ADD MAN DIFF? NO
[2018-11-07 06:17] LABS: WHITE BLOOD COUNT 10.9 10^3/ul (4.8-10.8)
[2018-11-07 06:17] LABS: BASOPHIL # 0.1 10^3/ul (0.0-0.1); BASOPHILS % 0.9 % (0.0-2.0); EOSINOPHILS # 0.2 10^3/ul (0.0-0.5); HEMATOCRIT 39.9 % (42.0-52.0); HEMOGLOBIN 13.1 g/dl (14.0-18.0); LYMPHOCYTES # 1.2 10^3/ul (0.8-2.9); LYMPHOCYTES % 10.8 % (15.0-51.0); MEAN CORPUSCULAR HEMOGLOBIN 29.1 pg (29.0-33.0); MEAN CORPUSCULAR HGB CONC 32.8 g/dl (32.0-37.0); MEAN CORPUSCULAR VOLUME 88.7 fl (82.0-101.0); MEAN PLATELET VOLUME 10.4 fl (7.4-10.4); MONOCYTE # 0.9 10^3/ul (0.3-0.9); MONOCYTES % 8.3 % (0.0-11.0); NEUTROPHIL # 8.4 10^3/ul (1.6-7.5); NEUTROPHILS % 77.5 % (39.0-77.0); PLATELET COUNT 280 10^3/UL (140-415); RED CELL DISTRIBUTION WIDTH 16.3 % (11.5-14.5)
[2018-11-07 06:35] LABS: ANION GAP 10 (5-13); BLOOD UREA NITROGEN 60 mg/dl (7-20); CALCIUM 9.4 mg/dl (8.4-10.2); CARBON DIOXIDE 28 mmol/L (21-31); CHLORIDE 102 mmol/L (97-110); CREATININE 1.82 mg/dl (0.61-1.24); Estimated GFR 38 mL/min (>60); GLUCOSE 96 mg/dl (70-220); MAGNESIUM 2.1 mg/dl (1.7-2.5); PHOSPHORUS 5.9 mg/dl (2.5-4.9); SODIUM 140 mmol/L (135-144)
[2018-11-07] MEDS: ALBUTEROL/IPRATROPIUM (NEB) 3 ML AMP HHN ×3 (07:38→19:38)
[2018-11-07] MEDS: INSULIN ASPART [NOVOLOG] 3 ML PEN SC ×4 (08:00→20:25)
[2018-11-07] MEDS: BUPROPION (XL) 150 MG TAB PO (08:42)
[2018-11-07] MEDS: INSULIN GLARGINE [LANTus] (100 UNITS/ML) SYG SC ×2 (08:42→20:23)
[2018-11-07] MEDS: ASPIRIN (EC) 81 MG TAB PO (08:42)
[2018-11-07] MEDS: SENNA TAB PO ×2 (08:43→20:23)
[2018-11-07] MEDS: METOPROLOL (XL) 25 MG TAB PO (08:43)
[2018-11-07] MEDS: AMLODIPINE 5 MG TAB PO (08:44)
[2018-11-07] MEDS: RIFAMPIN 300 MG CAP PO (08:44)
[2018-11-07] MEDS: HEPARIN 5,000 UNIT/1 ML VIAL SC ×2 (08:47→20:25)
[2018-11-07] MEDS: VANCOMYCIN 1 GM 250 ML IVPB (10:34)
[2018-11-07] MEDS: POTASSIUM CHLORIDE (SR) 8 MEQ CAP PO (11:56)
[2018-11-07] MEDS: BUMETANIDE 2 MG in DEXTROSE 5% 17 ML IV ×2 (13:47→21:50)
[2018-11-07] MEDS ORDERED: BUMETANIDE 1 MG INJ IV (14:00)
[2018-11-08] MEDS: ACCU-CHEK XX (01:38)
[2018-11-08] MEDS: CIPROFLOXACIN 500 MG TAB PO ×2 (05:27→17:37)
[2018-11-08] MEDS: BUMETANIDE 2 MG in DEXTROSE 5% 17 ML IV ×2 (05:27→17:37)
[2018-11-08] MEDS: METOLAZONE 5 MG TAB PO ×2 (05:28→17:38)
[2018-11-08 07:55] LABS: ADD MAN DIFF? NO
[2018-11-08] MEDS: INSULIN ASPART [NOVOLOG] 3 ML PEN SC ×4 (07:55→20:24)
[2018-11-08] MEDS: ASPIRIN (EC) 81 MG TAB PO (08:02)
[2018-11-08] MEDS: RIFAMPIN 300 MG CAP PO (08:02)
[2018-11-08] MEDS: BUPROPION (XL) 150 MG TAB PO (08:02)
[2018-11-08 08:03] LABS: WHITE BLOOD COUNT 10.5 10^3/ul (4.8-10.8)
[2018-11-08 08:03] LABS: BASOPHIL # 0.1 10^3/ul (0.0-0.1); BASOPHILS % 1.1 % (0.0-2.0); EOSINOPHILS # 0.3 10^3/ul (0.0-0.5); EOSINOPHILS % 2.5 % (0.0-7.0); HEMATOCRIT 40.1 % (42.0-52.0); HEMOGLOBIN 13.3 g/dl (14.0-18.0); LYMPHOCYTES % 9.9 % (15.0-51.0); MEAN CORPUSCULAR HEMOGLOBIN 28.9 pg (29.0-33.0); MEAN CORPUSCULAR HGB CONC 33.2 g/dl (32.0-37.0); MEAN PLATELET VOLUME 10.4 fl (7.4-10.4); MONOCYTES % 9.3 % (0.0-11.0); NEUTROPHILS % 76.7 % (39.0-77.0); PLATELET COUNT 282 10^3/UL (140-415); RED BLOOD COUNT 4.61 10^6/ul (4.70-6.10); RED CELL DISTRIBUTION WIDTH 16.1 % (11.5-14.5)
[2018-11-08] MEDS: SENNA TAB PO ×2 (08:03→20:25)
[2018-11-08] MEDS: HEPARIN 5,000 UNIT/1 ML VIAL SC ×2 (08:03→20:26)
[2018-11-08] MEDS: METOPROLOL (XL) 25 MG TAB PO (08:15)
[2018-11-08] MEDS: AMLODIPINE 5 MG TAB PO (08:16)
[2018-11-08 08:18] LABS: ANION GAP 12 (5-13); BLOOD UREA NITROGEN 64 mg/dl (7-20); CALCIUM 9.4 mg/dl (8.4-10.2); CARBON DIOXIDE 27 mmol/L (21-31); CHLORIDE 99 mmol/L (97-110); CREATININE 1.98 mg/dl (0.61-1.24); Estimated GFR 34 mL/min (>60); GLUCOSE 122 mg/dl (70-220); PHOSPHORUS 6.3 mg/dl (2.5-4.9); SODIUM 138 mmol/L (135-144)
[2018-11-08] MEDS: ALBUTEROL/IPRATROPIUM (NEB) 3 ML AMP HHN ×3 (08:50→20:00)
[2018-11-08] MEDS: VANCOMYCIN 1 GM 250 ML IVPB (09:38)
[2018-11-08] MEDS: INSULIN GLARGINE [LANTus] (100 UNITS/ML) SYG SC ×2 (09:41→20:23)
[2018-11-08] MEDS: POTASSIUM CHLORIDE (SR) 10 MEQ TAB PO (12:23)
[2018-11-08] MEDS: HYDROCODONE/APAP (5/325) TAB PO (20:25)
[2018-11-09] MEDS: ACCU-CHEK XX (01:38)
[2018-11-09] MEDS: BUMETANIDE 2 MG in DEXTROSE 5% 17 ML IV (05:12)
[2018-11-09] MEDS: CIPROFLOXACIN 500 MG TAB PO ×2 (05:12→17:18)
[2018-11-09] MEDS: METOLAZONE 5 MG TAB PO ×2 (05:12→08:24)
[2018-11-09] MEDS: INSULIN ASPART [NOVOLOG] 3 ML PEN SC ×4 (07:55→20:58)
[2018-11-09] MEDS: HEPARIN 5,000 UNIT/1 ML VIAL SC ×2 (07:58→20:59)
[2018-11-09] MEDS: ALBUTEROL/IPRATROPIUM (NEB) 3 ML AMP HHN ×3 (08:00→20:00)
[2018-11-09] MEDS: ASPIRIN (EC) 81 MG TAB PO (08:23)
[2018-11-09] MEDS: INSULIN GLARGINE [LANTus] (100 UNITS/ML) SYG SC ×2 (08:23→20:56)
[2018-11-09] MEDS: RIFAMPIN 300 MG CAP PO (08:23)
[2018-11-09] MEDS: AMLODIPINE 5 MG TAB PO ×2 (08:24→08:32)
[2018-11-09] MEDS: METOPROLOL (XL) 25 MG TAB PO (08:24)
[2018-11-09] MEDS: BUPROPION (XL) 150 MG TAB PO (08:24)
[2018-11-09] MEDS: SENNA TAB PO ×2 (08:24→20:59)
[2018-11-09 10:13] LABS: ADD MAN DIFF? NO
[2018-11-09 10:17] LABS: WHITE BLOOD COUNT 10.7 10^3/ul (4.8-10.8)
[2018-11-09 10:17] LABS: BASOPHIL # 0.1 10^3/ul (0.0-0.1); BASOPHILS % 1.2 % (0.0-2.0); EOSINOPHILS # 0.3 10^3/ul (0.0-0.5); EOSINOPHILS % 2.5 % (0.0-7.0); HEMATOCRIT 40.3 % (42.0-52.0); HEMOGLOBIN 13.4 g/dl (14.0-18.0); LYMPHOCYTES % 9.3 % (15.0-51.0); MEAN CORPUSCULAR HGB CONC 33.3 g/dl (32.0-37.0); MEAN CORPUSCULAR VOLUME 87.2 fl (82.0-101.0); MEAN PLATELET VOLUME 10.4 fl (7.4-10.4); MONOCYTE # 0.9 10^3/ul (0.3-0.9); MONOCYTES % 8.3 % (0.0-11.0); NEUTROPHIL # 8.4 10^3/ul (1.6-7.5); NEUTROPHILS % 78.3 % (39.0-77.0); PLATELET COUNT 278 10^3/UL (140-415); RED BLOOD COUNT 4.62 10^6/ul (4.70-6.10)
[2018-11-09 10:43] LABS: VANCOMYCIN,TROUGH 22.9 ug/ml (10.0-20.0)
[2018-11-09 10:45] LABS: ANION GAP 11 (5-13); BLOOD UREA NITROGEN 71 mg/dl (7-20); CALCIUM 9.4 mg/dl (8.4-10.2); CARBON DIOXIDE 31 mmol/L (21-31); CHLORIDE 97 mmol/L (97-110); CREATININE 2.29 mg/dl (0.61-1.24); Estimated GFR 29 mL/min (>60); GLUCOSE 221 mg/dl (70-220); PHOSPHORUS 6.8 mg/dl (2.5-4.9); POTASSIUM 4.1 mmol/L (3.5-5.1); SODIUM 139 mmol/L (135-144)
[2018-11-09] MEDS: VANCOMYCIN 1 GM 250 ML IVPB ×2 (11:11→20:55)
[2018-11-09] MEDS: SEVELAMER CARBONATE 800 MG TABLET PO (17:17)
[2018-11-10] MEDS: ACCU-CHEK XX (01:04)
[2018-11-10] MEDS: CIPROFLOXACIN 500 MG TAB PO ×2 (05:39→18:01)
[2018-11-10 06:10] LABS: ADD MAN DIFF? NO
[2018-11-10 06:25] LABS: WHITE BLOOD COUNT 9.4 10^3/ul (4.8-10.8)
[2018-11-10 06:25] LABS: BASOPHIL # 0.1 10^3/ul (0.0-0.1); BASOPHILS % 1.2 % (0.0-2.0); EOSINOPHILS # 0.3 10^3/ul (0.0-0.5); EOSINOPHILS % 2.9 % (0.0-7.0); HEMATOCRIT 39.1 % (42.0-52.0); LYMPHOCYTES # 1.1 10^3/ul (0.8-2.9); MEAN CORPUSCULAR HEMOGLOBIN 29.1 pg (29.0-33.0); MEAN CORPUSCULAR HGB CONC 33.2 g/dl (32.0-37.0); MEAN CORPUSCULAR VOLUME 87.5 fl (82.0-101.0); MEAN PLATELET VOLUME 10.7 fl (7.4-10.4); MONOCYTES % 10.9 % (0.0-11.0); NEUTROPHIL # 6.8 10^3/ul (1.6-7.5); NEUTROPHILS % 72.7 % (39.0-77.0); PLATELET COUNT 279 10^3/UL (140-415); RED BLOOD COUNT 4.47 10^6/ul (4.70-6.10); RED CELL DISTRIBUTION WIDTH 15.8 % (11.5-14.5)
[2018-11-10 06:40] LABS: ALANINE AMINOTRANSFERASE 17 IU/L (13-69); ALBUMIN 3.4 g/dl (3.3-4.9); ALBUMIN/GLOBULIN RATIO 0.64; ALKALINE PHOSPHATASE 470 IU/L (42-121); ANION GAP 10 (5-13); ASPARTATE AMINO TRANSFERASE 31 IU/L (15-46); BILIRUBIN,INDIRECT 0.7 mg/dl (0-1.1); BILIRUBIN,TOTAL 0.7 mg/dl (0.2-1.3); BLOOD UREA NITROGEN 74 mg/dl (7-20); CALCIUM 9.2 mg/dl (8.4-10.2); CARBON DIOXIDE 32 mmol/L (21-31); CHLORIDE 96 mmol/L (97-110); CREATININE 2.24 mg/dl (0.61-1.24); Estimated GFR 30 mL/min (>60); GLUCOSE 166 mg/dl (70-220); POTASSIUM 3.9 mmol/L (3.5-5.1); SODIUM 138 mmol/L (135-144); TOTAL PROTEIN 8.7 g/dl (6.1-8.1)
[2018-11-10] MEDS: ALBUTEROL/IPRATROPIUM (NEB) 3 ML AMP HHN ×3 (08:00→20:00)
[2018-11-10] MEDS: INSULIN ASPART [NOVOLOG] 3 ML PEN SC ×4 (08:00→20:17)
[2018-11-10] MEDS: HEPARIN 5,000 UNIT/1 ML VIAL SC ×2 (09:00→20:24)
[2018-11-10] MEDS: BUMETANIDE 2 MG in DEXTROSE 5% 17 ML IV (09:39)
[2018-11-10] MEDS: SEVELAMER CARBONATE 800 MG TABLET PO ×3 (09:40→18:01)
[2018-11-10] MEDS: ASPIRIN (EC) 81 MG TAB PO (09:40)
[2018-11-10] MEDS: AMLODIPINE 5 MG TAB PO (09:41)
[2018-11-10] MEDS: SENNA TAB PO ×2 (09:42→20:24)
[2018-11-10] MEDS: RIFAMPIN 300 MG CAP PO (09:42)
[2018-11-10] MEDS: BUPROPION (XL) 150 MG TAB PO (09:42)
[2018-11-10] MEDS: METOPROLOL (XL) 25 MG TAB PO (09:42)
[2018-11-10] MEDS: INSULIN GLARGINE [LANTus] (100 UNITS/ML) SYG SC ×2 (09:44→20:18)
[2018-11-11] MEDS: ACCU-CHEK XX (02:00)
[2018-11-11] MEDS: CIPROFLOXACIN 500 MG TAB PO ×2 (05:39→17:09)
[2018-11-11 05:52] LABS: ADD MAN DIFF? NO
[2018-11-11 05:59] LABS: WHITE BLOOD COUNT 7.8 10^3/ul (4.8-10.8)
[2018-11-11 05:59] LABS: BASOPHIL # 0.1 10^3/ul (0.0-0.1); BASOPHILS % 1.2 % (0.0-2.0); EOSINOPHILS # 0.2 10^3/ul (0.0-0.5); EOSINOPHILS % 3.1 % (0.0-7.0); HEMOGLOBIN 13.6 g/dl (14.0-18.0); LYMPHOCYTES # 1.1 10^3/ul (0.8-2.9); LYMPHOCYTES % 14.5 % (15.0-51.0); MEAN CORPUSCULAR HEMOGLOBIN 28.8 pg (29.0-33.0); MEAN CORPUSCULAR HGB CONC 32.4 g/dl (32.0-37.0); MEAN CORPUSCULAR VOLUME 88.8 fl (82.0-101.0); MEAN PLATELET VOLUME 10.7 fl (7.4-10.4); MONOCYTE # 0.8 10^3/ul (0.3-0.9); MONOCYTES % 10.2 % (0.0-11.0); NEUTROPHIL # 5.5 10^3/ul (1.6-7.5); NEUTROPHILS % 70.7 % (39.0-77.0); PLATELET COUNT 285 10^3/UL (140-415); RED BLOOD COUNT 4.73 10^6/ul (4.70-6.10); RED CELL DISTRIBUTION WIDTH 15.8 % (11.5-14.5)
[2018-11-11 06:26] LABS: ANION GAP 11 (5-13); BLOOD UREA NITROGEN 79 mg/dl (7-20); CALCIUM 9.5 mg/dl (8.4-10.2); CARBON DIOXIDE 32 mmol/L (21-31); CHLORIDE 95 mmol/L (97-110); CREATININE 2.06 mg/dl (0.61-1.24); Estimated GFR 33 mL/min (>60); GLUCOSE 168 mg/dl (70-220); MAGNESIUM 2.3 mg/dl (1.7-2.5); PHOSPHORUS 5.9 mg/dl (2.5-4.9); SODIUM 138 mmol/L (135-144)
[2018-11-11] MEDS: ALBUTEROL/IPRATROPIUM (NEB) 3 ML AMP HHN ×3 (08:00→19:42)
[2018-11-11] MEDS: INSULIN ASPART [NOVOLOG] 3 ML PEN SC ×4 (08:07→20:55)
[2018-11-11] MEDS: HEPARIN 5,000 UNIT/1 ML VIAL SC ×3 (08:08→20:55)
[2018-11-11] MEDS: INSULIN GLARGINE [LANTus] (100 UNITS/ML) SYG SC ×2 (08:08→20:54)
[2018-11-11] MEDS: ASPIRIN (EC) 81 MG TAB PO (08:09)
[2018-11-11] MEDS: SENNA TAB PO ×2 (08:09→20:53)
[2018-11-11] MEDS: BUPROPION (XL) 150 MG TAB PO (08:10)
[2018-11-11] MEDS: SEVELAMER CARBONATE 800 MG TABLET PO ×3 (08:10→17:09)
[2018-11-11] MEDS: RIFAMPIN 300 MG CAP PO (08:10)
[2018-11-11] MEDS: BUMETANIDE 2 MG in DEXTROSE 5% 17 ML IV (08:11)
[2018-11-11] MEDS: METOPROLOL (XL) 25 MG TAB PO (08:14)
[2018-11-11] MEDS: AMLODIPINE 5 MG TAB PO (08:14)
[2018-11-11] MEDS: VANCOMYCIN 1 GM 250 ML IVPB (20:53)
[2018-11-11] MEDS: HYDROCODONE/APAP (5/325) TAB PO (22:42)
[2018-11-12] MEDS: ACCU-CHEK XX (01:54)
[2018-11-12] MEDS: CIPROFLOXACIN 500 MG TAB PO ×2 (05:39→17:19)
[2018-11-12 05:40] LABS: ADD MAN DIFF? NO
[2018-11-12 05:49] LABS: BASOPHIL # 0.1 10^3/ul (0.0-0.1); EOSINOPHILS # 0.2 10^3/ul (0.0-0.5); EOSINOPHILS % 2.9 % (0.0-7.0); HEMATOCRIT 40.7 % (42.0-52.0); HEMOGLOBIN 13.4 g/dl (14.0-18.0); LYMPHOCYTES # 1.1 10^3/ul (0.8-2.9); LYMPHOCYTES % 12.9 % (15.0-51.0); MEAN CORPUSCULAR HEMOGLOBIN 29.4 pg (29.0-33.0); MEAN CORPUSCULAR HGB CONC 32.9 g/dl (32.0-37.0); MEAN CORPUSCULAR VOLUME 89.3 fl (82.0-101.0); MEAN PLATELET VOLUME 10.8 fl (7.4-10.4); MONOCYTE # 0.9 10^3/ul (0.3-0.9); MONOCYTES % 10.4 % (0.0-11.0); NEUTROPHILS % 72.6 % (39.0-77.0); PLATELET COUNT 268 10^3/UL (140-415); RED BLOOD COUNT 4.56 10^6/ul (4.70-6.10); RED CELL DISTRIBUTION WIDTH 15.5 % (11.5-14.5)
[2018-11-12 05:49] LABS: WHITE BLOOD COUNT 8.2 10^3/ul (4.8-10.8)
[2018-11-12 06:16] LABS: ANION GAP 10 (5-13); BLOOD UREA NITROGEN 82 mg/dl (7-20); CALCIUM 9.4 mg/dl (8.4-10.2); CARBON DIOXIDE 32 mmol/L (21-31); CHLORIDE 96 mmol/L (97-110); CREATININE 2.03 mg/dl (0.61-1.24); Estimated GFR 33 mL/min (>60); GLUCOSE 215 mg/dl (70-220); MAGNESIUM 2.2 mg/dl (1.7-2.5); PHOSPHORUS 5.6 mg/dl (2.5-4.9); POTASSIUM 4.2 mmol/L (3.5-5.1); SODIUM 138 mmol/L (135-144)
[2018-11-12] MEDS: ALBUTEROL/IPRATROPIUM (NEB) 3 ML AMP HHN ×3 (08:00→20:00)
[2018-11-12] MEDS: INSULIN ASPART [NOVOLOG] 3 ML PEN SC ×4 (08:12→20:53)
[2018-11-12] MEDS: RIFAMPIN 300 MG CAP PO (08:13)
[2018-11-12] MEDS: INSULIN GLARGINE [LANTus] (100 UNITS/ML) SYG SC ×2 (08:13→20:52)
[2018-11-12] MEDS: BUPROPION (XL) 150 MG TAB PO (08:13)
[2018-11-12] MEDS: SENNA TAB PO ×2 (08:13→20:50)
[2018-11-12] MEDS: SEVELAMER CARBONATE 800 MG TABLET PO (08:13)
[2018-11-12] MEDS: ASPIRIN (EC) 81 MG TAB PO (08:13)
[2018-11-12] MEDS: METOPROLOL (XL) 25 MG TAB PO (08:14)
[2018-11-12] MEDS: AMLODIPINE 5 MG TAB PO (08:14)
[2018-11-12] MEDS: HEPARIN 5,000 UNIT/1 ML VIAL SC ×2 (08:15→20:51)
[2018-11-12] MEDS: DOXYCYCLINE 100 MG TAB PO ×2 (11:11→20:50)
[2018-11-13] MEDS: ACCU-CHEK XX (01:24)
[2018-11-13] MEDS: HYDROCODONE/APAP (5/325) TAB PO (05:35)
[2018-11-13] MEDS: CIPROFLOXACIN 500 MG TAB PO ×2 (05:35→17:35)
[2018-11-13 07:26] LABS: ANION GAP 11 (5-13); BLOOD UREA NITROGEN 78 mg/dl (7-20); CALCIUM 9.4 mg/dl (8.4-10.2); CARBON DIOXIDE 28 mmol/L (21-31); CHLORIDE 99 mmol/L (97-110); CREATININE 2.11 mg/dl (0.61-1.24); Estimated GFR 32 mL/min (>60); GLUCOSE 123 mg/dl (70-220); POTASSIUM 3.9 mmol/L (3.5-5.1); SODIUM 138 mmol/L (135-144)
[2018-11-13] MEDS: ALBUTEROL/IPRATROPIUM (NEB) 3 ML AMP HHN ×3 (08:00→19:11)
[2018-11-13] MEDS: INSULIN ASPART [NOVOLOG] 3 ML PEN SC ×4 (08:00→20:57)
[2018-11-13] MEDS: AMLODIPINE 5 MG TAB PO (09:00)
[2018-11-13] MEDS: SENNA TAB PO ×2 (09:00→20:55)
[2018-11-13] MEDS: HEPARIN 5,000 UNIT/1 ML VIAL SC ×2 (09:00→20:59)
[2018-11-13] MEDS: BUPROPION (XL) 150 MG TAB PO (09:00)
[2018-11-13] MEDS: METOPROLOL (XL) 25 MG TAB PO (10:22)
[2018-11-13] MEDS: ASPIRIN (EC) 81 MG TAB PO (10:22)
[2018-11-13] MEDS: RIFAMPIN 300 MG CAP PO (10:22)
[2018-11-13] MEDS: DOXYCYCLINE 100 MG TAB PO ×2 (10:22→20:54)
[2018-11-13] MEDS: INSULIN GLARGINE [LANTus] (100 UNITS/ML) SYG SC ×2 (10:23→20:57)
[2018-11-14] MEDS: ACCU-CHEK XX (01:43)
[2018-11-14] MEDS: CIPROFLOXACIN 500 MG TAB PO (05:21)
[2018-11-14 07:16] LABS: ADD MAN DIFF? NO
[2018-11-14 07:27] LABS: WHITE BLOOD COUNT 8.1 10^3/ul (4.8-10.8)
[2018-11-14 07:27] LABS: BASOPHIL # 0.1 10^3/ul (0.0-0.1); BASOPHILS % 1.6 % (0.0-2.0); EOSINOPHILS # 0.3 10^3/ul (0.0-0.5); EOSINOPHILS % 3.2 % (0.0-7.0); HEMATOCRIT 42.2 % (42.0-52.0); HEMOGLOBIN 13.7 g/dl (14.0-18.0); LYMPHOCYTES # 1.2 10^3/ul (0.8-2.9); LYMPHOCYTES % 14.5 % (15.0-51.0); MEAN CORPUSCULAR HEMOGLOBIN 29.3 pg (29.0-33.0); MEAN CORPUSCULAR HGB CONC 32.5 g/dl (32.0-37.0); MEAN CORPUSCULAR VOLUME 90.2 fl (82.0-101.0); MEAN PLATELET VOLUME 11.1 fl (7.4-10.4); MONOCYTE # 0.8 10^3/ul (0.3-0.9); MONOCYTES % 10.3 % (0.0-11.0); NEUTROPHIL # 5.6 10^3/ul (1.6-7.5); NEUTROPHILS % 69.8 % (39.0-77.0); PLATELET COUNT 249 10^3/UL (140-415); RED BLOOD COUNT 4.68 10^6/ul (4.70-6.10); RED CELL DISTRIBUTION WIDTH 15.4 % (11.5-14.5)
[2018-11-14 07:50] LABS: ALBUMIN 3.7 g/dl (3.3-4.9); ANION GAP 10 (5-13); BLOOD UREA NITROGEN 79 mg/dl (7-20); CALCIUM 9.3 mg/dl (8.4-10.2); CARBON DIOXIDE 29 mmol/L (21-31); CHLORIDE 101 mmol/L (97-110); CREATININE 2.07 mg/dl (0.61-1.24); GLUCOSE 150 mg/dl (70-220); MAGNESIUM 2.3 mg/dl (1.7-2.5); PHOSPHORUS 5.7 mg/dl (2.5-4.9); POTASSIUM 4.1 mmol/L (3.5-5.1); SODIUM 140 mmol/L (135-144)
[2018-11-14] MEDS: ALBUTEROL/IPRATROPIUM (NEB) 3 ML AMP HHN (08:00)
[2018-11-14] MEDS: INSULIN ASPART [NOVOLOG] 3 ML PEN SC (08:12)
[2018-11-14] MEDS: DOXYCYCLINE 100 MG TAB PO (08:59)
[2018-11-14] MEDS: BUPROPION (XL) 150 MG TAB PO (08:59)
[2018-11-14] MEDS: ASPIRIN (EC) 81 MG TAB PO (08:59)
[2018-11-14] MEDS: HEPARIN 5,000 UNIT/1 ML VIAL SC (09:00)
[2018-11-14] MEDS: SENNA TAB PO (09:00)
[2018-11-14] MEDS: RIFAMPIN 300 MG CAP PO (09:00)
[2018-11-14] MEDS: METOPROLOL (XL) 25 MG TAB PO (09:00)
[2018-11-14] MEDS: AMLODIPINE 5 MG TAB PO (09:00)
[2018-11-14] MEDS: INSULIN GLARGINE [LANTus] (100 UNITS/ML) SYG SC (10:25)
== END 2018-11-14 11:55 | disposition home health service (06) | DRG 602 ==
LOC: E/R 15:25 → PP2 19:53
PROC: 5A09357 Assistance with Respiratory Ventilation, Less than 24 Consecutive Hours, Continuous Positive Airway Pressure (ICD-10-PCS; principal; 2018-11-02)
DX: L03.116 Cellulitis of left lower limb (principal); I50.23 Acute on chronic systolic (congestive) heart failure; J96.01 Acute respiratory failure with hypoxia; I13.0 Hypertensive heart and chronic kidney disease with heart failure and stage 1 through stage 4 chronic kidney disease, or unspecified chronic kidney disease; N17.9 Acute kidney failure, unspecified; L97.529 Non-pressure chronic ulcer of other part of left foot with unspecified severity; L03.115 Cellulitis of right lower limb; E11.22 Type 2 diabetes mellitus with diabetic chronic kidney disease; N18.9 Chronic kidney disease, unspecified; E11.65 Type 2 diabetes mellitus with hyperglycemia; E11.40 Type 2 diabetes mellitus with diabetic neuropathy, unspecified; G47.33 Obstructive sleep apnea (adult) (pediatric); E11.621 Type 2 diabetes mellitus with foot ulcer; L97.519 Non-pressure chronic ulcer of other part of right foot with unspecified severity; F17.200 Nicotine dependence, unspecified, uncomplicated; E66.9 Obesity, unspecified; Z68.35 Body mass index [BMI] 35.0-35.9, adult
CPT/HCPCS: 36415; 71045; 73562; 73590; 73630-50; 76775; 80048; 80053; 80061; 80069; 80202; 81001; 81003; 82550; 82553; 82570; 82962; 83735; 83880; 84100; 84484; 85025; 86320; 86325; 87040-91; 87070; 93005; 93306; 93970; 94640; 94660; 94664; 96374; 96375; 97110; 97116; 97161; 97530; 99285-25

== ENCOUNTER 2019-02-15 07:34 | Inpatient (IN) | payer OTHER ==
[2019-02-15 08:15] LABS: ADD MAN DIFF? NO
[2019-02-15 08:18] LABS: BASOPHIL # 0.1 10^3/ul (0.0-0.1); BASOPHILS % 1.1 % (0.0-2.0); EOSINOPHILS # 0.4 10^3/ul (0.0-0.5); EOSINOPHILS % 4.3 % (0.0-7.0); HEMATOCRIT 38.6 % (42.0-52.0); HEMOGLOBIN 11.9 g/dl (14.0-18.0); LYMPHOCYTES # 1.1 10^3/ul (0.8-2.9); LYMPHOCYTES % 12.3 % (15.0-51.0); MEAN CORPUSCULAR HEMOGLOBIN 28.7 pg (29.0-33.0); MEAN CORPUSCULAR HGB CONC 30.8 g/dl (32.0-37.0); MEAN CORPUSCULAR VOLUME 93.2 fl (82.0-101.0); MONOCYTE # 0.6 10^3/ul (0.3-0.9); NEUTROPHIL # 6.6 10^3/ul (1.6-7.5); PLATELET COUNT 227 10^3/UL (140-415); RED BLOOD COUNT 4.14 10^6/ul (4.70-6.10); RED CELL DISTRIBUTION WIDTH 18.4 % (11.5-14.5)
[2019-02-15 08:18] LABS: WHITE BLOOD COUNT 8.8 10^3/ul (4.8-10.8)
[2019-02-15 08:38] LABS: INR 1.38; PROTIME 17.1 Sec (11.9-14.9); PT RATIO 1.3
[2019-02-15 08:45] LABS: ALANINE AMINOTRANSFERASE 24 IU/L (13-69); ALBUMIN 3.2 g/dl (3.3-4.9); ALBUMIN/GLOBULIN RATIO 0.56; ALKALINE PHOSPHATASE 331 IU/L (42-121); ANION GAP 9 (5-13); ASPARTATE AMINO TRANSFERASE 40 IU/L (15-46); BILIRUBIN,INDIRECT 0.5 mg/dl (0-1.1); BILIRUBIN,TOTAL 0.5 mg/dl (0.2-1.3); BLOOD UREA NITROGEN 57 mg/dl (7-20); CARBON DIOXIDE 24 mmol/L (21-31); CHLORIDE 108 mmol/L (97-110); CREATININE 2.13 mg/dl (0.61-1.24); Estimated GFR 32 mL/min (>60); GLUCOSE 63 mg/dl (70-220); POTASSIUM 4.4 mmol/L (3.5-5.1); SODIUM 141 mmol/L (135-144); TOTAL PROTEIN 8.9 g/dl (6.1-8.1)
[2019-02-15 08:56] LABS: B-TYPE NATRIURETIC PEPTIDE 15900 PG/ML (0-125)
[2019-02-15] MEDS ORDERED: ACETAMINOPHEN 325 MG TAB PO ×2 (10:00→10:30)
[2019-02-15] MEDS ORDERED: ONDANSETRON 4 MG INJ IV ×2 (10:00→10:30)
[2019-02-15] MEDS ORDERED: BUMETANIDE 1 MG TAB PO (10:30)
[2019-02-15] MEDS ORDERED: NACL 0.9% 3 ML SYG IV (10:30)
[2019-02-15] MEDS ORDERED: INSULIN GLARGINE [LANtus] 3 ML PEN SC ×2 (10:30→21:00)
[2019-02-15] MEDS: METOPROLOL (XL) 25 MG TAB PO (10:30)
[2019-02-15] MEDS ORDERED: GLUCOSE GEL 15 GRAM TUBE PO ×2 (11:00)
[2019-02-15] MEDS ORDERED: DEXTROSE 50% 50 ML SYRINGE IV ×2 (11:00)
[2019-02-15] MEDS ORDERED: GLUCAGON 1 MG INJ IM (11:00)
[2019-02-15] MEDS ORDERED: GLUCOSE GEL 15 GRAM TUBE BUCCAL (11:00)
[2019-02-15] MEDS: BUMETANIDE 1 MG INJ IV (12:49)
[2019-02-15] MEDS: NYSTATIN 30 GM POWDER BTL TOP ×2 (12:49→20:28)
[2019-02-15] MEDS: DOXYCYCLINE 100 MG in SOD CHLORIDE 0.9% 250 ML IVPB (12:51)
[2019-02-15] MEDS: INSULIN ASPART [NOVOLOG] 3 ML PEN SC ×5 (13:05→20:28)
[2019-02-15 13:59] LABS: ADD UMIC YES; UR ASCORBIC ACID NEGATIVE (NEGATIVE); UR BILIRUBIN (Dip) NEGATIVE (NEGATIVE); UR BLOOD (Dip) 1+ mg/dL (NEGATIVE); UR CLARITY CLEAR (CLEAR); UR COLOR YELLOW (YELLOW); UR GLUCOSE (Dip) NEGATIVE (NEGATIVE); UR KETONES (Dip) NEGATIVE (NEGATIVE); UR LEUKOCYTE ESTERASE (Dip) NEGATIVE Leu/ul (NEGATIVE); UR MUCUS FEW /HPF (NONE SEEN); UR NITRITE (Dip) NEGATIVE (NEGATIVE); UR RBC 1 /HPF (0-5); UR SPECIFIC GRAVITY (Dip) 1.011 (1.003-1.030); UR TOTAL PROTEIN (Dip) NEGATIVE (NEGATIVE); UR UROBILINOGEN (Dip) NEGATIVE (NEGATIVE); UR WBC 1 /HPF (0-5)
[2019-02-15 14:04] LABS: CREATININE,URINE RANDOM 65.29 mg/dl (20-370)
[2019-02-15 14:04] LABS: SODIUM,URINE RANDOM 51 mmol/L (30-90)
[2019-02-15] MEDS: AZTREONAM 1 GM/NS (PMX) 50 ML IVPB ×2 (15:01→23:35)
[2019-02-15 19:05] LABS: CREATINE KINASE 166 IU/L (23-200)
[2019-02-15 19:18] LABS: CK INDEX 9.2; TROPONIN-I 0.023 ng/ml (0.000-0.120)
[2019-02-15] MEDS: INSULIN GLARGINE [LANTus] (100 UNITS/ML) SYG SC (20:30)
[2019-02-16 01:38] LABS: CREATINE KINASE 120 IU/L (23-200)
[2019-02-16 01:52] LABS: CK INDEX 9.9; TROPONIN-I 0.018 ng/ml (0.000-0.120)
[2019-02-16] MEDS: ACCU-CHEK XX (02:00)
[2019-02-16] MEDS: AZTREONAM 1 GM/NS (PMX) 50 ML IVPB ×3 (06:00→21:34)
[2019-02-16 06:13] LABS: ADD MAN DIFF? NO
[2019-02-16 06:23] LABS: BASOPHIL # 0.1 10^3/ul (0.0-0.1); BASOPHILS % 1.2 % (0.0-2.0); EOSINOPHILS # 0.5 10^3/ul (0.0-0.5); EOSINOPHILS % 5.5 % (0.0-7.0); HEMATOCRIT 36.1 % (42.0-52.0); HEMOGLOBIN 11.5 g/dl (14.0-18.0); LYMPHOCYTES % 11.4 % (15.0-51.0); MEAN CORPUSCULAR HEMOGLOBIN 29.2 pg (29.0-33.0); MEAN CORPUSCULAR HGB CONC 31.9 g/dl (32.0-37.0); MEAN CORPUSCULAR VOLUME 91.6 fl (82.0-101.0); MEAN PLATELET VOLUME 11.5 fl (7.4-10.4); MONOCYTE # 0.6 10^3/ul (0.3-0.9); MONOCYTES % 7.1 % (0.0-11.0); NEUTROPHIL # 6.4 10^3/ul (1.6-7.5); NEUTROPHILS % 74.4 % (39.0-77.0); NUCLEATED RED BLOOD CELLS% 0.2 /100WBC (0.0-0.0); PLATELET COUNT 204 10^3/UL (140-415); RED BLOOD COUNT 3.94 10^6/ul (4.70-6.10); RED CELL DISTRIBUTION WIDTH 18.6 % (11.5-14.5)
[2019-02-16 06:23] LABS: WHITE BLOOD COUNT 8.5 10^3/ul (4.8-10.8)
[2019-02-16 06:37] LABS: ALANINE AMINOTRANSFERASE 25 IU/L (13-69); ALBUMIN 2.9 g/dl (3.3-4.9); ALBUMIN/GLOBULIN RATIO 0.53; ALKALINE PHOSPHATASE 332 IU/L (42-121); ANION GAP 9 (5-13); ASPARTATE AMINO TRANSFERASE 39 IU/L (15-46); BILIRUBIN,INDIRECT 0.6 mg/dl (0-1.1); BILIRUBIN,TOTAL 0.6 mg/dl (0.2-1.3); BLOOD UREA NITROGEN 56 mg/dl (7-20); CALCIUM 8.6 mg/dl (8.4-10.2); CARBON DIOXIDE 21 mmol/L (21-31); CHLORIDE 109 mmol/L (97-110); CHOL/HDL RATIO 6.9 RATIO; CHOLESTEROL 104 mg/dl (100-200); CREATININE 1.98 mg/dl (0.61-1.24); Estimated GFR 34 mL/min (>60); GLUCOSE 76 mg/dl (70-220); HDL CHOLESTEROL 15 mg/dl (30-78); LDL CHOLESTEROL,CALCULATED 73 mg/dl; MAGNESIUM 2.1 mg/dl (1.7-2.5); POTASSIUM 4.4 mmol/L (3.5-5.1); SODIUM 139 mmol/L (135-144); TOTAL PROTEIN 8.3 g/dl (6.1-8.1); TRIGLYCERIDES 80 mg/dl (0-149)
[2019-02-16 07:01] LABS: C-REACTIVE PROTEIN 5.9 mg/dl (0.0-0.9)
[2019-02-16] MEDS: INSULIN ASPART [NOVOLOG] 3 ML PEN SC ×6 (08:00→21:00)
[2019-02-16] MEDS: BUPROPION (XL) 150 MG TAB PO ×2 (09:21→09:25)
[2019-02-16] MEDS: BUMETANIDE 1 MG INJ IV (09:21)
[2019-02-16 09:25] LABS: HEMOGLOBIN A1C 7.3 % (0-5.9)
[2019-02-16] MEDS: METOPROLOL (XL) 25 MG TAB PO (09:26)
[2019-02-16] MEDS: METOLAZONE 5 MG TAB PO (09:32)
[2019-02-16] MEDS: NYSTATIN 30 GM POWDER BTL TOP ×2 (12:47→21:25)
[2019-02-16] MEDS: HYDROCODONE/APAP (5/325) TAB PO ×2 (14:45→21:34)
[2019-02-16] MEDS: INSULIN GLARGINE [LANTus] (100 UNITS/ML) SYG SC (21:27)
[2019-02-17] MEDS: ACCU-CHEK XX (02:08)
[2019-02-17] MEDS: AZTREONAM 1 GM/NS (PMX) 50 ML IVPB (05:16)
[2019-02-17] MEDS: INSULIN ASPART [NOVOLOG] 3 ML PEN SC ×7 (08:00→21:55)
[2019-02-17] MEDS: BUMETANIDE 1 MG INJ IV (08:45)
[2019-02-17] MEDS: NYSTATIN 30 GM POWDER BTL TOP ×2 (08:46→21:52)
[2019-02-17] MEDS: METOPROLOL (XL) 25 MG TAB PO (08:46)
[2019-02-17 13:31] LABS: CREATININE, RANDOM URINE 66 mg/dL (20-320); MICROALBUMIN 11.8 mg/dL; MICROALBUMIN/CREATININE RATIO 179 (<30)
[2019-02-17] MEDS: CIPROFLOXACIN 500 MG TAB PO (18:00)
[2019-02-17] MEDS: DOXYCYCLINE 100 MG TAB PO (21:52)
[2019-02-17] MEDS: MUPIROCIN 2% 22 GM OINT TOP (21:52)
[2019-02-17] MEDS: INSULIN GLARGINE [LANTus] (100 UNITS/ML) SYG SC (21:56)
[2019-02-18] MEDS: morphine 2 MG INJ IV (00:42)
[2019-02-18] MEDS: FUROSEMIDE 20 MG INJ IV (00:49)
[2019-02-18] MEDS: ACCU-CHEK XX (02:00)
[2019-02-18] MEDS: CIPROFLOXACIN 500 MG TAB PO ×2 (06:18→17:06)
[2019-02-18] MEDS: INSULIN ASPART [NOVOLOG] 3 ML PEN SC ×6 (07:43→20:36)
[2019-02-18 07:54] LABS: ADD MAN DIFF? NO
[2019-02-18 08:00] LABS: BASOPHIL # 0.1 10^3/ul (0.0-0.1); BASOPHILS % 1.3 % (0.0-2.0); EOSINOPHILS # 0.5 10^3/ul (0.0-0.5); EOSINOPHILS % 6.1 % (0.0-7.0); HEMATOCRIT 36.6 % (42.0-52.0); HEMOGLOBIN 11.5 g/dl (14.0-18.0); LYMPHOCYTES # 1.3 10^3/ul (0.8-2.9); LYMPHOCYTES % 14.6 % (15.0-51.0); MEAN CORPUSCULAR HEMOGLOBIN 29.2 pg (29.0-33.0); MEAN CORPUSCULAR HGB CONC 31.4 g/dl (32.0-37.0); MEAN CORPUSCULAR VOLUME 92.9 fl (82.0-101.0); MEAN PLATELET VOLUME 10.9 fl (7.4-10.4); MONOCYTE # 0.7 10^3/ul (0.3-0.9); MONOCYTES % 8.6 % (0.0-11.0); NEUTROPHIL # 5.9 10^3/ul (1.6-7.5); NEUTROPHILS % 69.2 % (39.0-77.0); PLATELET COUNT 206 10^3/UL (140-415); RED BLOOD COUNT 3.94 10^6/ul (4.70-6.10); RED CELL DISTRIBUTION WIDTH 18.6 % (11.5-14.5)
[2019-02-18 08:00] LABS: WHITE BLOOD COUNT 8.6 10^3/ul (4.8-10.8)
[2019-02-18] MEDS: NYSTATIN 30 GM POWDER BTL TOP ×2 (08:11→20:37)
[2019-02-18] MEDS: MUPIROCIN 2% 22 GM OINT TOP ×2 (08:11→20:37)
[2019-02-18] MEDS: BUPROPION (XL) 150 MG TAB PO (08:11)
[2019-02-18] MEDS: DOXYCYCLINE 100 MG TAB PO ×2 (08:11→21:00)
[2019-02-18] MEDS: METOPROLOL (XL) 25 MG TAB PO (08:13)
[2019-02-18] MEDS: BUMETANIDE 1 MG INJ IV (08:13)
[2019-02-18 08:19] LABS: ANION GAP 8 (5-13); BLOOD UREA NITROGEN 58 mg/dl (7-20); CALCIUM 8.7 mg/dl (8.4-10.2); CARBON DIOXIDE 25 mmol/L (21-31); CHLORIDE 106 mmol/L (97-110); CREATININE 1.85 mg/dl (0.61-1.24); Estimated GFR 37 mL/min (>60); GLUCOSE 94 mg/dl (70-220); MAGNESIUM 2.1 mg/dl (1.7-2.5); PHOSPHORUS 4.9 mg/dl (2.5-4.9); POTASSIUM 4.4 mmol/L (3.5-5.1); SODIUM 139 mmol/L (135-144)
[2019-02-18] MEDS: INSULIN GLARGINE [LANTus] (100 UNITS/ML) SYG SC (20:49)
[2019-02-18] MEDS ORDERED: MELATONIN 3 MG TABLET PO (21:00)
[2019-02-19] MEDS: ACCU-CHEK XX (02:21)
[2019-02-19] MEDS: CIPROFLOXACIN 500 MG TAB PO ×2 (05:52→18:00)
[2019-02-19 06:19] LABS: ADD MAN DIFF? NO
[2019-02-19 06:21] LABS: BASOPHIL # 0.1 10^3/ul (0.0-0.1); BASOPHILS % 1.3 % (0.0-2.0); EOSINOPHILS # 0.5 10^3/ul (0.0-0.5); EOSINOPHILS % 7.3 % (0.0-7.0); HEMATOCRIT 36.6 % (42.0-52.0); HEMOGLOBIN 11.5 g/dl (14.0-18.0); MEAN CORPUSCULAR HEMOGLOBIN 28.9 pg (29.0-33.0); MEAN CORPUSCULAR HGB CONC 31.4 g/dl (32.0-37.0); MEAN PLATELET VOLUME 10.9 fl (7.4-10.4); MONOCYTE # 0.8 10^3/ul (0.3-0.9); MONOCYTES % 10.1 % (0.0-11.0); NEUTROPHILS % 67.2 % (39.0-77.0); PLATELET COUNT 188 10^3/UL (140-415); RED BLOOD COUNT 3.98 10^6/ul (4.70-6.10); RED CELL DISTRIBUTION WIDTH 18.1 % (11.5-14.5)
[2019-02-19 06:21] LABS: WHITE BLOOD COUNT 7.4 10^3/ul (4.8-10.8)
[2019-02-19 06:57] LABS: ANION GAP 8 (5-13); BLOOD UREA NITROGEN 55 mg/dl (7-20); CALCIUM 8.4 mg/dl (8.4-10.2); CARBON DIOXIDE 25 mmol/L (21-31); CHLORIDE 105 mmol/L (97-110); Estimated GFR 36 mL/min (>60); GLUCOSE 89 mg/dl (70-220); PHOSPHORUS 4.8 mg/dl (2.5-4.9); SODIUM 138 mmol/L (135-144)
[2019-02-19] MEDS: INSULIN ASPART [NOVOLOG] 3 ML PEN SC ×4 (07:51→21:00)
[2019-02-19] MEDS: DOXYCYCLINE 100 MG TAB PO ×2 (09:35→21:00)
[2019-02-19] MEDS: METOLAZONE 2.5 MG TAB PO (09:35)
[2019-02-19] MEDS: BUPROPION (XL) 150 MG TAB PO (09:35)
[2019-02-19] MEDS: MUPIROCIN 2% 22 GM OINT TOP ×2 (09:36→21:46)
[2019-02-19] MEDS: METOPROLOL (XL) 25 MG TAB PO (09:36)
[2019-02-19] MEDS: BUMETANIDE 1 MG INJ IV (09:36)
[2019-02-19] MEDS: NYSTATIN 30 GM POWDER BTL TOP ×2 (09:37→21:46)
[2019-02-19] MEDS: MELATONIN 3 MG TABLET PO (21:21)
[2019-02-19] MEDS: INSULIN GLARGINE [LANTus] (100 UNITS/ML) SYG SC (21:27)
[2019-02-20] MEDS: ACCU-CHEK XX (01:48)
[2019-02-20] MEDS: CIPROFLOXACIN 500 MG TAB PO ×2 (06:23→18:00)
[2019-02-20 06:28] LABS: ADD MAN DIFF? NO
[2019-02-20 06:41] LABS: BASOPHIL # 0.1 10^3/ul (0.0-0.1); BASOPHILS % 1.2 % (0.0-2.0); EOSINOPHILS # 0.5 10^3/ul (0.0-0.5); EOSINOPHILS % 6.3 % (0.0-7.0); HEMATOCRIT 38.3 % (42.0-52.0); LYMPHOCYTES # 1.2 10^3/ul (0.8-2.9); LYMPHOCYTES % 13.8 % (15.0-51.0); MEAN CORPUSCULAR HEMOGLOBIN 28.8 pg (29.0-33.0); MEAN CORPUSCULAR HGB CONC 31.3 g/dl (32.0-37.0); MEAN CORPUSCULAR VOLUME 91.8 fl (82.0-101.0); MEAN PLATELET VOLUME 11.1 fl (7.4-10.4); MONOCYTE # 0.9 10^3/ul (0.3-0.9); MONOCYTES % 10.5 % (0.0-11.0); NEUTROPHIL # 5.8 10^3/ul (1.6-7.5); NEUTROPHILS % 67.7 % (39.0-77.0); PLATELET COUNT 207 10^3/UL (140-415); RED BLOOD COUNT 4.17 10^6/ul (4.70-6.10); RED CELL DISTRIBUTION WIDTH 18.1 % (11.5-14.5)
[2019-02-20 06:41] LABS: WHITE BLOOD COUNT 8.5 10^3/ul (4.8-10.8)
[2019-02-20 06:59] LABS: ANION GAP 10 (5-13); BLOOD UREA NITROGEN 58 mg/dl (7-20); CALCIUM 8.9 mg/dl (8.4-10.2); CARBON DIOXIDE 25 mmol/L (21-31); CHLORIDE 103 mmol/L (97-110); CREATININE 2.01 mg/dl (0.61-1.24); Estimated GFR 34 mL/min (>60); GLUCOSE 85 mg/dl (70-220); PHOSPHORUS 4.9 mg/dl (2.5-4.9); POTASSIUM 4.3 mmol/L (3.5-5.1); SODIUM 138 mmol/L (135-144)
[2019-02-20] MEDS: morphine 2 MG INJ IV (07:40)
[2019-02-20] MEDS: INSULIN ASPART [NOVOLOG] 3 ML PEN SC ×4 (07:54→21:00)
[2019-02-20] MEDS: DOXYCYCLINE 100 MG TAB PO ×2 (09:36→21:08)
[2019-02-20] MEDS: BUMETANIDE 1 MG INJ IV (09:36)
[2019-02-20] MEDS: METOPROLOL (XL) 25 MG TAB PO (09:37)
[2019-02-20] MEDS: MUPIROCIN 2% 22 GM OINT TOP ×2 (09:37→21:09)
[2019-02-20] MEDS: BUPROPION (XL) 150 MG TAB PO (09:37)
[2019-02-20] MEDS: NYSTATIN 30 GM POWDER BTL TOP ×2 (09:37→21:10)
[2019-02-20] MEDS: METOLAZONE 2.5 MG TAB PO (09:37)
[2019-02-20] MEDS: MELATONIN 3 MG TABLET PO (21:08)
[2019-02-20] MEDS: INSULIN GLARGINE [LANTus] (100 UNITS/ML) SYG SC (21:19)
[2019-02-21] MEDS: ACCU-CHEK XX (01:54)
[2019-02-21 05:55] LABS: WHITE BLOOD COUNT 6.5 10^3/ul (4.8-10.8)
[2019-02-21 05:55] LABS: ADD MAN DIFF? NO; BASOPHIL # 0.1 10^3/ul (0.0-0.1); BASOPHILS % 1.2 % (0.0-2.0); EOSINOPHILS # 0.6 10^3/ul (0.0-0.5); EOSINOPHILS % 8.8 % (0.0-7.0); HEMATOCRIT 37.9 % (42.0-52.0); HEMOGLOBIN 11.9 g/dl (14.0-18.0); LYMPHOCYTES % 15.3 % (15.0-51.0); MEAN CORPUSCULAR HGB CONC 31.4 g/dl (32.0-37.0); MEAN CORPUSCULAR VOLUME 92.4 fl (82.0-101.0); MEAN PLATELET VOLUME 11.2 fl (7.4-10.4); MONOCYTE # 0.7 10^3/ul (0.3-0.9); MONOCYTES % 10.7 % (0.0-11.0); NEUTROPHIL # 4.1 10^3/ul (1.6-7.5); NEUTROPHILS % 63.7 % (39.0-77.0); PLATELET COUNT 193 10^3/UL (140-415); RED CELL DISTRIBUTION WIDTH 17.9 % (11.5-14.5)
[2019-02-21 06:29] LABS: ANION GAP 8 (5-13); BLOOD UREA NITROGEN 58 mg/dl (7-20); CALCIUM 8.9 mg/dl (8.4-10.2); CARBON DIOXIDE 26 mmol/L (21-31); CHLORIDE 104 mmol/L (97-110); CREATININE 1.98 mg/dl (0.61-1.24); Estimated GFR 34 mL/min (>60); GLUCOSE 114 mg/dl (70-220); PHOSPHORUS 4.8 mg/dl (2.5-4.9); SODIUM 138 mmol/L (135-144)
[2019-02-21] MEDS: CIPROFLOXACIN 500 MG TAB PO ×2 (06:30→18:22)
[2019-02-21] MEDS: INSULIN ASPART [NOVOLOG] 3 ML PEN SC ×4 (08:00→20:31)
[2019-02-21] MEDS: DOXYCYCLINE 100 MG TAB PO ×2 (09:45→20:30)
[2019-02-21] MEDS: BUPROPION (XL) 150 MG TAB PO (09:45)
[2019-02-21] MEDS: METOPROLOL (XL) 25 MG TAB PO (09:45)
[2019-02-21] MEDS: BUMETANIDE 1 MG INJ IV (09:46)
[2019-02-21] MEDS: NYSTATIN 30 GM POWDER BTL TOP ×2 (09:46→20:32)
[2019-02-21] MEDS: MUPIROCIN 2% 22 GM OINT TOP ×2 (09:46→20:31)
[2019-02-21] MEDS: MELATONIN 3 MG TABLET PO (20:30)
[2019-02-21] MEDS: INSULIN GLARGINE [LANTus] (100 UNITS/ML) SYG SC (20:33)
[2019-02-22] MEDS ORDERED: BUMETANIDE 1 MG TAB PO (09:00)
== END 2019-02-21 20:45 | DRG 291 ==
LOC: E/R 07:34 → 2NE 02-20 23:04 → 6WM 09:33
DX: I13.0 Hypertensive heart and chronic kidney disease with heart failure and stage 1 through stage 4 chronic kidney disease, or unspecified chronic kidney disease (principal); I50.23 Acute on chronic systolic (congestive) heart failure; L03.116 Cellulitis of left lower limb; L03.115 Cellulitis of right lower limb; N17.9 Acute kidney failure, unspecified; Z68.41 Body mass index [BMI] 40.0-44.9, adult; E66.2 Morbid (severe) obesity with alveolar hypoventilation; L03.113 Cellulitis of right upper limb; N18.9 Chronic kidney disease, unspecified; E11.42 Type 2 diabetes mellitus with diabetic polyneuropathy; G47.33 Obstructive sleep apnea (adult) (pediatric); E11.21 Type 2 diabetes mellitus with diabetic nephropathy; E11.22 Type 2 diabetes mellitus with diabetic chronic kidney disease; D64.9 Anemia, unspecified; I42.9 Cardiomyopathy, unspecified; E78.5 Hyperlipidemia, unspecified; E11.51 Type 2 diabetes mellitus with diabetic peripheral angiopathy without gangrene; L40.9 Psoriasis, unspecified; Z22.322 Carrier or suspected carrier of Methicillin resistant Staphylococcus aureus; B35.6 Tinea cruris; F39 Unspecified mood [affective] disorder; E11.649 Type 2 diabetes mellitus with hypoglycemia without coma; Z79.4 Long term (current) use of insulin; Z79.82 Long term (current) use of aspirin
CPT/HCPCS: 36415; 71045; 80048; 80053; 80061; 81001; 81003; 82043; 82550; 82553; 82962; 83036; 83735; 83880; 84100; 84155; 84300; 84443; 84484; 85025; 85610; 85651; 86140; 87081; 93005; 93970; 94660; 97110; 97116; 97162; 97530; 99285-25